=== PATIENT | female | born 1985 | race Caucasian/White ===

== ENCOUNTER → 2017-12-02 | Outpatient (CLI) | payer MEDICAID ==
[~2017-12-02] MED LIST: ACHD5005 PO; IBUP-844 PO; PREN1TAB86 PO
--- NOTE | 2017-12-02 13:56 | Diagnostic Imaging Report ---
INDICATION: Irregular menses. TECHNIQUE: Multiple real-time grayscale images were obtained over the gravid uterus. COMPARISON: None. FINDINGS: There is a single live fetus in a transverse presentation head to maternal right. Placenta is anterior. Amniotic fluid volume is normal. heart rate was recorded at 150 beats per minute. survey demonstrates kidneys, bladder and stomach to be unremarkable. Intracranial structures are unremarkable. There is a three-vessel cord with normal insertion. The spine is unremarkable. Note is made of an echogenic focus in the left ventricle, often of no significance. Followup could be performed. Cervical length is approximately 5 cm. Biometrical measurements are as follows: Biparietal 6.37 cm, age 25 weeks 6 days. Head circumference 24.54 cm, age 26 weeks 5 days. Abdominal circumference 23.20 cm, age 27 weeks 4 days. Femur length 4.80 cm, age 26 weeks 1 days. Sonographic estimate age: 26 weeks 4 days. Sonographic estimated date of delivery: 03-06-18. Estimated Weight: 991 gm (+/- 145 gm). LMP percentile: NA%. heart rate: 150 beats per minute. number: 1 of 1. IMPRESSION: Single live IUP approximately 26 weeks 4 days gestational age with an estimated date of confinement sonographically of 03/06/2018. Echogenic intracardiac focus is seen in the left ventricle, as described. Followup ultrasound can be performed for further evaluation. Dictated by: Dictated on workstation # [id number]
== END ==
LOC: RAD 12:28
PROVIDERS: ATTEND Family Medicine
DX: Z34.82 Encounter for supervision of other normal pregnancy, second trimester (principal); Z3A.26 26 weeks gestation of pregnancy
CPT/HCPCS: 76805

== ENCOUNTER → 2018-01-08 | Outpatient (CLI) | payer MEDICAID ==
--- NOTE | 2018-01-09 13:37 | Diagnostic Imaging Report ---
INDICATION: Echogenic focus in the heart. TECHNIQUE: Multiple real-time grayscale images were obtained over the gravid uterus. COMPARISON: 11/22/2017. FINDINGS: There is a single living intrauterine . The heart rate is 150 beats per minute. The fetus is in a cephalic presentation. The placenta is anterior. There is no evidence of previa. The heart, extremities, and lips are unremarkable. No abnormalities are appreciated. There is a four-chamber heart. The amniotic fluid index is 12.1. The gestational age by last menstrual period is 31 weeks 6 days. IMPRESSION: Limited obstetrical sonogram is unremarkable. Dictated by: Dictated on workstation # [id number]
== END ==
LOC: RAD 16:59
PROVIDERS: ATTEND Family Medicine
DX: Z34.93 Encounter for supervision of normal pregnancy, unspecified, third trimester (principal); Z3A.00 Weeks of gestation of pregnancy not specified
CPT/HCPCS: 76816

== ENCOUNTER 2018-03-03 06:00 | Inpatient (IN) | payer MEDICAID ==
[2018-03-03] VITALS (70 sets, daily range): BP systolic 89–138; BP diastolic 45–89
[~2018-03-03] VITALS: Ht 167.6 cm; Wt 116.2 kg
[2018-03-03] MEDS ORDERED: PREN1TAB86 PO (06:27)
[2018-03-03] MEDS ORDERED: D5 LR IV SOLUTION 1,000 ML IV ONE (06:28)
[2018-03-03] MEDS ORDERED: OXYTOCIN/NORMAL SALINE 500 ML IV ONE (06:28)
[2018-03-03] MEDS ORDERED: OXYTOCIN/NORMAL SALINE 500 ML IV SCH ×2 (06:31→19:04)
[2018-03-03] MEDS ORDERED: NS (IVPB) 100 ML ONE (06:32)
[2018-03-03] MEDS ORDERED: AMPICILLIN 2000 MG INJECTION (IM/IV) ONE (06:32)
[2018-03-03] MEDS ORDERED: MINERAL OIL CONCENTRATE 99.9% 15 ML UDC TOP PRN (06:45)
[2018-03-03] MEDS: D5 LR IV SOLUTION 1,000 ML IV SCH ×2 (06:53→15:11)
[2018-03-03] MEDS ORDERED: AMPICILLIN INJECTION 2,000 MG in NS (IVPB) 50 ML IV SCH (07:00)
--- NOTE | 2018-03-03 07:05 | History & Physical-OB ---
OB - Chief Complaint & HPI Date/Time Date of Admission: Date of Admission: Mar 03, 2018 at 06:19 Time Seen by Provider: 07:15 Chief Complaint/History OB-Reason for Admission/Chief: Induction of Labor Hx : 7 Hx Para: 6 Expected Date of Delivery: Mar 06, 2018 Gestational Age in Weeks: 39 Admission Nurse Assessment Rev: Yes History of Labs GBS Positive Allergies and Home Medications Allergies Coded Allergies: No Known Drug Allergies (Unverified , 03/03/18) Home Medications Vit W-Ca,Fe,FA(<1 mg) 1 Each Tablet, 1 EACH PO DAILY, (Reported) Patient Home Medication List Home Medication List Reviewed: Yes OB - History Hx of Present Care: Yes Ultrasounds: Normal mid trimester US Obstetrical Complications: None Medical Complications: None Delivery History Adverse Rxn to Tranfusion: No Patient Past Medical History no chronic medical problems Social History/Family History Recent Infectious Disease Expo: No Alcohol Use: Denies Use Recreational Drug Use: No OB - Admission Exam Physical Exam HEENT: Moist Membranes Heart: Rhythm Normal Lungs: Clear Cervical Dilatation: 2cm Effacement: 50% OB - Assessment/Plan/Diagnosis Assessment Assessment: induction of labor (at 39w4d) Admission Dx IUP at term 39w4d Admission Status: Inpatient Order (span 2 midnights) Reason for Inpatient Admission: L&D Plan Plan: Induction Induction Method: AROM Other Plan desired epidural pitocin as needed LINNETTE ESCAMILLA MD Mar 03, 2018 07:05
[2018-03-03 07:11] LABS: BASOPHILS % (AUTO) 0 % (0-10); EOSINOPHILS # (AUTO) 0.1 10^3/uL (0.0-0.3); EOSINOPHILS % (AUTO) 2 % (0-10); HEMATOCRIT 34 % (35-52); LYMPHOCYTES # (AUTO) 1.9 X 10^3 (1.0-4.0); LYMPHOCYTES % (AUTO) 24 % (12-44); MEAN CORPUSCULAR HEMOGLOBIN 26 PG (25-34); MEAN CORPUSCULAR HGB CONC 33 G/DL (32-36); MEAN CORPUSCULAR VOLUME 78 FL (80-99); MEAN PLATELET VOLUME 10.8 FL (7.4-10.4); MONOCYTES # (AUTO) 0.8 X 10^3 (0.0-1.0); MONOCYTES % (AUTO) 10 % (0-12); NEUTROPHILS # (AUTO) 5.2 X 10^3 (1.8-7.8); NEUTROPHILS % (AUTO) 65 % (42-75); PLATELET COUNT 209 10^3/uL (130-400); RED BLOOD COUNT 4.29 10^6/uL (4.35-5.85); RED CELL DISTRIBUTION WIDTH 15.7 % (10.0-14.5); WHITE BLOOD COUNT 8.1 10^3/uL (4.3-11.0)
[2018-03-03] MEDS ORDERED: SUFENTA 0.6MCG/ML BUPIVA 0.125 100 ML ONE (07:58)
[2018-03-03] MEDS ORDERED: MEPIVACAINE (CARBOCAINE) 2% 20 ML VIAL ONE (07:58)
[2018-03-03] MEDS: EPIDURAL (SUFENTA 0.6MCG/ML BUPIVA 0.125%) 100 ML BAG EPI PRN ×2 (09:00→17:36)
[2018-03-03] MEDS ORDERED: fentaNYL INJECTION 100 MCG/2 ML AMP ONE (09:04)
[2018-03-03] MEDS ORDERED: LIDOCAINE PF 2% 5 ML (XYLOCAINE) VIAL ONE (09:04)
[2018-03-03] MEDS ORDERED: BUPIVACAINE 0.25% 30 ML (SENSORCAINE) VIAL ONE (09:04)
[2018-03-03] MEDS ORDERED: LACTATED RINGERS 1,000 ML IV SCH (09:35)
[2018-03-03] MEDS ORDERED: NALOXONE 0.4 MG/ML 1 ML (NARCAN) VIAL IV PRN (09:45)
[2018-03-03] MEDS ORDERED: ONDANSETRON 4 MG/2 ML (SDV) Z0FRAN IV PRN (09:45)
[2018-03-03] MEDS ORDERED: diphenhydrAMINE 50 MG/ML INJ (BENADRYL) IV PRN (09:45)
[2018-03-03] MEDS: AMPICILLIN INJECTION 1,000 MG in NS (IVPB) 50 ML IV SCH ×2 (10:57→15:11)
[2018-03-03] MEDS ORDERED: CATHETER FLUSH 10 ML SYR IV SCH (14:00)
[2018-03-03] MEDS ORDERED: ACETAMINOPHEN 500 MG TAB (TYLENOL) ONE (14:34)
[2018-03-03] MEDS ORDERED: ACETAMINOPHEN 500 MG TAB (TYLENOL) PO PRN (14:45)
[2018-03-03 16:18] LABS: BILIRUBIN,URINE NEGATIVE (NEGATIVE); CLARITY,URINE CLEAR; COLOR,URINE YELLOW; GLUCOSE, URINE (UA) NEGATIVE (NEGATIVE); KETONES,URINE NEGATIVE (NEGATIVE); LEUKOCYTE ESTERASE ,URINE 1+ (NEGATIVE); NITRITE,URINE NEGATIVE (NEGATIVE); PH,URINE 6.5 (5-9); PROTEIN,URINE 2+ (NEGATIVE); UROBILINOGEN,URINE NORMAL (NORMAL)
[2018-03-03 16:26] LABS: BACTERIA,URINE NEGATIVE /HPF; CALCIUM OXALATE CRYSTALS,UR LARGE /LPF; WBC,URINE RARE /HPF
--- NOTE | 2018-03-03 16:31 | Progress Note (SOAP) ---
Subjective Subjective/Events-last exam Labor continues. She is without complaints. Epidural in place Review of Systems Date Seen by Provider: Mar 03, 2018 Time Seen by Provider: 16:20 Objective Exam Last Set of Vital Signs Vital Signs Date Time Temp Pulse Resp B/P (MAP) Pulse Ox O2 Delivery O2 Flow Rate FiO2 03/03/18 13:45 95 18 107/59 (75) 95 Room Air 03/03/18 11:00 97.7 Capillary Refill : General: No Acute Distress Other physical findings cervix 7cm, 80% effaced, vtx presentation -2. Results/Procedures Lab Laboratory Tests 03/03/18 06:35: Urine Color YELLOW, Urine Clarity CLEAR, Urine pH 6.5, Urine Specific [place] 1.020, Urine Protein 2+H, Urine Glucose (UA) NEGATIVE, Urine Ketones NEGATIVE, Urine Nitrite NEGATIVE, Urine Bilirubin NEGATIVE, Urine Urobilinogen NORMAL, Urine Leukocyte Esterase 1+H, Urine RBC (Auto) 2+H, Urine RBC 5-10H, Urine WBC RARE, Urine Squamous Epithelial Cells 5-10, Urine Crystals PRESENTH, Urine Calcium Oxalate Crystals LARGEH, Urine Bacteria NEGATIVE, Urine Casts NONE, Urine Mucus NEGATIVE, Urine Culture Indicated NO 03/03/18 06:40: White Blood Count 8.1, Red Blood Count 4.29L, Hemoglobin 11.0L, Hematocrit 34L, Mean Corpuscular Volume 78L, Mean Corpuscular Hemoglobin 26, Mean Corpuscular Hemoglobin Concent 33, Red Cell Distribution Width 15.7H, Platelet Count 209, Mean Platelet Volume 10.8H, Neutrophils (%) (Auto) 65, Lymphocytes (%) (Auto) 24 , Monocytes (%) (Auto) 10, Eosinophils (%) (Auto) 2, Basophils (%) (Auto) 0, Neutrophils # (Auto) 5.2, Lymphocytes # (Auto) 1.9, Monocytes # (Auto) 0.8, Eosinophils # (Auto) 0.1, Basophils # (Auto) 0.0 Assessment/Plan Assessment/Plan Assessment & Plan 1. IUP at term 39w4d in labor -continue labor and pit at 18uU/min currently -epidural working well. Clinical Quality Measures DVT/VTE Risk/Contraindication: Risk Factor Score Per Nursin RFS Level Per Nursing on Admit: 1=Low/No VTE PPX LINNETTE ESCAMILLA MD Mar 03, 2018 16:31
--- NOTE | 2018-03-03 19:04 | OB Labor & Delivery Record ---
L&D History Date of Service Date of Service: Mar 03, 2018 History Expected Date of Delivery: Mar 06, 2018 Gestational Age in Weeks: 39 Hx : 7 Hx Para: 6 Complications Events: Routine care Operative Indications (Cesarea: N/A-Vaginal Delivery Intrapartal Events: None Other Complications GBS positive -- received ampicillin per protochol L&D Stage1 Stage One Onset of Labor - Date: Mar 03, 2018 Onset of Labor - Time: 07:20 Monitors and Tracing Monitor Mode: Internal Heart Rate: 145 Monitor Accelerations: Uniform Station: -1 Lead Electrical Engineer Variability: Average (6-10) Short Term Variability: Present Presentation: Vertex Vital Signs VS - Last 72 Hours, by Label 03/03/18 03/03/18 03/03/18 03/03/18 06:45 07:24 07:40 07:54 Temp 98.4 98.2 Pulse 94 101 96 90 Resp 20 20 20 B/P (MAP) 126/70 (88) 126/66 (86) 106/65 (79) 105/59 (74) O2 Delivery Room Air Room Air Room Air Room Air 03/03/18 03/03/18 03/03/18 03/03/18 08:08 08:25 08:37 08:53 Pulse 94 83 90 Resp 20 20 20 22 B/P (MAP) 105/56 (72) 121/71 (88) 109/56 (73) 110/64 (79) O2 Delivery Room Air Room Air Room Air Room Air 03/03/18 03/03/18 03/03/18 03/03/18 09:10 09:20 09:23 09:24 Pulse 90 103 94 106 Resp 22 22 22 22 B/P (MAP) 116/71 (86) 111/84 (93) 118/64 (82) 121/76 (91) Pulse Ox 99 99 98 O2 Delivery Room Air Room Air Room Air Room Air 03/03/18 03/03/18 03/03/18 03/03/18 09:32 09:35 09:40 09:42 Pulse 94 108 100 110 Resp 22 22 22 22 B/P (MAP) 120/65 (83) 112/58 (76) 93/57 (69) 106/56 (73) Pulse Ox 100 97 97 98 O2 Delivery Room Air Room Air Room Air Room Air 03/03/18 03/03/18 03/03/18 03/03/18 09:45 09:47 09:50 09:55 Pulse 126 105 108 116 Resp 22 22 B/P (MAP) 104/59 (74) 109/59 (76) 110/60 (77) 109/57 (74) Pulse Ox 97 97 97 O2 Delivery Room Air Room Air Room Air Room Air 03/03/18 03/03/18 03/03/18 03/03/18 09:57 10:00 10:03 10:05 Pulse 120 108 111 113 Resp 22 22 B/P (MAP) 101/50 (67) 108/57 (74) 105/54 (71) 96/55 (69) Pulse Ox 98 96 96 97 O2 Delivery Room Air Room Air Room Air Room Air 03/03/18 03/03/18 03/03/18 03/03/18 10:08 10:12 10:20 10:30 Pulse 99 106 86 93 Resp 22 18 18 18 B/P (MAP) 112/53 (72) 97/52 (67) 100/45 (63) Pulse Ox 93 96 97 96 O2 Delivery Room Air Room Air Room Air Room Air 03/03/18 03/03/18 03/03/18 03/03/18 10:45 11:00 11:15 11:30 Temp 97.7 Pulse 96 89 91 82 Resp 18 18 18 18 B/P (MAP) 94/48 (63) 89/50 (63) 100/57 (71) 103/51 (68) Pulse Ox 96 94 97 97 O2 Delivery Room Air Room Air Room Air Room Air 03/03/18 03/03/18 03/03/18 03/03/18 11:45 12:00 12:15 12:30 Pulse 86 88 83 95 Resp 18 18 18 18 B/P (MAP) 100/56 (71) 101/60 (74) 104/58 (73) 106/57 (73) Pulse Ox 98 96 96 98 O2 Delivery Room Air Room Air Room Air Room Air 03/03/18 03/03/18/03/03/18 12:45 13:00 13:30 13:45 Pulse 88 88 96 95 Resp 18 18 18 18 B/P (MAP) 120/55 (76) 115/58 (77) 106/63 (77) 107/59 (75) Pulse Ox 96 96 96 95 O2 Delivery Room Air Room Air Room Air Room Air Signs of Distress by FHT Signs of Distress no Rupture of Membranes Spontaneous Ruture of Membrane: No Amniotic Membrane Rupture Time: 07 Amniotic Membrane Fluid Desc.: Clear Induction/Anesthesia Epidural Cath Placement - Time: 921 L&D Stage2 Stage Two Stage II Date: Mar 03, 2018 Stage II Time: 18:40 Monitors and Tracing Monitor Mode: Internal Heart Rate: 145 Monitor Accelerations: Uniform Monitor Decelerations: Variable Lead Electrical Engineer Variability: Average (6-10) Short Term Variability: Present Position: Left Occiput Anterior Presentation: Vertex Signs of Distress by FHT Signs of Distress no Cord Descript/Complications Cord Vessel Description: 3 Vessels Delivery Type Delivery Method: Spontaneous Vaginal Episiotomy/Perineal Laceration Laceraction(s)/Extensions: Yes Episiotomy Description: Midline Sutures Used: Vicryl Condition of Infant Delivery 1 minute Comment: 7 5 minute Comment: 8 Condition of Infant Condition of Infant: Living Exam: No Observed Abnormalities Resuscitation Resuscitation: N/A - Spontaneous Resp L&D Stage3 Stage Three Stage III Date: Mar 03, 2018 Stage III Time: 18:43 Pictocin Pitocin Administration mu/min: 20 Pitocin ml/hr: 20 Pitocin Administration Comment: PITOCIN STARTED PER PROTOCOL. Placenta Delivery Placenta Delivery: Spontaneous Delivery Summary Summary Estimated blood loss (mL): 250 Condition of Delivery Examined: Cervix Examined Post Hemorrhage: No Intervention Required none LINNETTE ESCAMILLA MD Mar 03, 2018 19:04
[2018-03-03] MEDS ORDERED: BENZOCAINE/MENTHOL (DERMOPLAST) 56 ML CAN TP PRN (19:15)
[2018-03-03] MEDS ORDERED: TETANUS,DIPTH,PERTUSS P/F (BOOSTRIX) 0.5 ML VIAL IM ONE (19:15)
[2018-03-03] MEDS ORDERED: MEASLES,MUMPS,RUBELLA 1 EA INJ SQ ONE (19:15)
[2018-03-03] MEDS ORDERED: WITCH HAZEL(TUCKS) 40 EA JAR TOP PRN (19:15)
[2018-03-03] MEDS: IBUPROFEN 600 MG (MOTRIN) TAB PO SCH (20:13)
[2018-03-04 01:00] VITALS: BP 111/69
[2018-03-04] MEDS: IBUPROFEN 600 MG (MOTRIN) TAB PO SCH ×4 (02:08→20:09)
[2018-03-04 05:00] VITALS: BP 98/59
[2018-03-04] MEDS: HYDROcodone/APAP 5 MG/325 MG (LORTAB) TAB PO PRN ×4 (05:16→16:55)
[2018-03-04 05:43] LABS: BASOPHILS % (AUTO) 0 % (0-10); EOSINOPHILS # (AUTO) 0.1 10^3/uL (0.0-0.3); EOSINOPHILS % (AUTO) 1 % (0-10); HEMATOCRIT 31 % (35-52); LYMPHOCYTES # (AUTO) 1.9 X 10^3 (1.0-4.0); LYMPHOCYTES % (AUTO) 20 % (12-44); MEAN CORPUSCULAR HEMOGLOBIN 26 PG (25-34); MEAN CORPUSCULAR HGB CONC 33 G/DL (32-36); MEAN CORPUSCULAR VOLUME 79 FL (80-99); MONOCYTES # (AUTO) 0.9 X 10^3 (0.0-1.0); MONOCYTES % (AUTO) 9 % (0-12); NEUTROPHILS # (AUTO) 6.6 X 10^3 (1.8-7.8); NEUTROPHILS % (AUTO) 70 % (42-75); PLATELET COUNT 219 10^3/uL (130-400); RED BLOOD COUNT 3.92 10^6/uL (4.35-5.85); RED CELL DISTRIBUTION WIDTH 15.8 % (10.0-14.5); WHITE BLOOD COUNT 9.4 10^3/uL (4.3-11.0)
[2018-03-04] MEDS ORDERED: PRENATAL VITAMIN 1 EA TAB PO SCH (07:00)
--- NOTE | 2018-03-04 07:38 | Progress Note (SOAP) ---
Subjective Subjective/Events-last exam Tailbone discomfort. Review of Systems Date Seen by Provider: Mar 04, 2018 Time Seen by Provider: 07:30 Objective Exam Last Set of Vital Signs Vital Signs Date Time Temp Pulse Resp B/P (MAP) Pulse Ox O2 Delivery O2 Flow Rate FiO2 03/04/18 05:00 97.8 85 18 98/59 (72) 97 Room Air Capillary Refill : I&O Intake and Output 03/04/18 00:00 Intake Total 1750 ml Balance 1750 ml Intake IV Total 1750 ml Daily Weight Change No General: No Acute Distress Lungs: Clear to Auscultation Abdomen: Soft (with uterus firm) Results/Procedures Lab Laboratory Tests 03/04/18 05:12: White Blood Count 9.4, Red Blood Count 3.92L, Hemoglobin 10.0L, Hematocrit 31L, Mean Corpuscular Volume 79L, Mean Corpuscular Hemoglobin 26, Mean Corpuscular Hemoglobin Concent 33, Red Cell Distribution Width 15.8H, Platelet Count 219, Mean Platelet Volume 11.0H, Neutrophils (%) (Auto) 70, Lymphocytes (%) (Auto) 20 , Monocytes (%) (Auto) 9, Eosinophils (%) (Auto) 1, Basophils (%) (Auto) 0, Neutrophils # (Auto) 6.6, Lymphocytes # (Auto) 1.9, Monocytes # (Auto) 0.9, Eosinophils # (Auto) 0.1, Basophils # (Auto) 0.0 Assessment/Plan Assessment/Plan Assessment & Plan 1. IUP at term 39w4d -S/P -continue with PP care order -Possibly home this pm after 24 hrs Clinical Quality Measures DVT/VTE Risk/Contraindication: Risk Factor Score Per Nursin RFS Level Per Nursing on Admit: 1=Low/No VTE PPX LINNETTE ESCAMILLA MD Mar 04, 2018 07:38
[2018-03-04] MEDS ORDERED: IBUP-844 PO (07:40)
[2018-03-04] MEDS ORDERED: ACHD5005 PO (07:40)
--- NOTE | 2018-03-04 07:41 | Discharge Inst-Women's Service ---
Discharge Inst-Women's Serv Depart Medication/Instructions New, Converted or Re-Newed RX: RX on Chart Consults/Follow Up Additional Follow Up: Yes (with Dr Escamilla in 6 weeks.) Activity Activity: Activity as Tolerated Driving Instructions: No Driving for 1 Week Nothing Inside Vagina: No [place] (for 6 weeks.) Diet Discharge Diet: Regular Diet Return to The Hospital For: as below Symptoms to Report to : Bleeding Excessive, Pain Increased, Fever Over 101 Degrees F, Vaginal Discharge Foul For Any Problems or Questions: Contact Your Physician, Go to Emergency Room LINNETTE ESCAMILLA MD Mar 04, 2018 07:41
[2018-03-04] MEDS ORDERED: TETANUS,DIPTH,PERTUSS P/F (BOOSTRIX) 0.5 ML VIAL IM ONE (08:35)
[2018-03-04] MEDS ORDERED: MEASLES,MUMPS,RUBELLA 1 EA INJ ONE (08:37)
[2018-03-04 08:52] VITALS: BP 100/66
[2018-03-04 12:43] VITALS: BP 108/69
[2018-03-04] MEDS: CATHETER FLUSH 10 ML SYR IV SCH ×2 (15:57→15:59)
[2018-03-04 16:52] VITALS: BP 116/64
[2018-03-04 20:10] VITALS: BP 116/70
--- NOTE | 2018-03-07 15:16 | Physician Query-Final Dx ---
DALE DE LA VEGA 03/07/18 1516: Final Diagnosis Give Final Diagnosis Please give Final Diagnosis LINNETTE ESCAMILLA MD 03/17/18 0756: Final Diagnosis Give Final Diagnosis 1 Intrauterine at term 39 weeks gestation [facility] Mar 07, 2018 15:16 LINNETTE ESCAMILLA MD Mar 17, 2018 07:56
== END 2018-03-04 20:50 | disposition home or self-care (01) | DRG 775 ==
LOC: LDRP 06:19
PROVIDERS: ADMIT Family Medicine; ATTEND Family Medicine
PROC: 10E0XZZ Delivery of Products of Conception, External Approach (ICD-10-PCS; principal; 2018-03-03)
PROC: 0W8NXZZ Division of Female Perineum, External Approach (ICD-10-PCS; 2018-03-03)
PROC: 10907ZC Drainage of Amniotic Fluid, Therapeutic from Products of Conception, Via Natural or Artificial Opening (ICD-10-PCS; 2018-03-03)
DX: O99.824 Streptococcus B carrier state complicating childbirth (principal); Z37.0 Single live birth; Z3A.39 39 weeks gestation of pregnancy; Z23 Encounter for immunization
CPT/HCPCS: 36415; 81000; 85025; 86850; 86900; 86901; 90707; 90715

== ENCOUNTER 2019-11-01 12:49 | Emergency (ER) | payer SELFPAY ==
[~2019-11-01] VITALS: Ht 167.7 cm; Wt 102.6 kg
--- NOTE | 2019-11-01 13:09 | ED Abdominal Pain ---
General Stated Complaint: ABD PAIN History of Present Illness Date Seen by Provider: Nov 01, 2019 Time Seen by Provider: 13:07 Initial Comments This patient is a 34-year-old female presents to the emergency room believing she is constipated. Patient has long history of the same. Patient states she had a small BM yesterday which was very hard and small. Patient's has abdominal cramping since last night. This is a common issue for this patient. We'll do a medical evaluation treatment is needed Timing/Duration: 2-3 Days Severity/Quality: Moderate Location: Generalized Abdomen Radiation: No Radiation Activities at Onset: None Modifying Factors: Improves With Defecating Associated Symptoms: No Denies Symptoms, No Back Pain, No Chest Pain, No Diaphoresis, No Fever/Chills, No Fatigue, No Headache, No Heartburn, No Nausea/Vomiting, No Rash, No Shortness of Air, No Swelling/Mass in Abdomen, No Syncope, No Weakness, No Other Allergies and Home Medications Allergies Coded Allergies: No Known Drug Allergies (Unverified , 03/03/18) Home Medications Hydrocodone Bit/Acetaminophen 1 Tab Tab, 1 TAB PO Q4H PRN for PAIN-MODERATE Prescribed by: LINNETTE ESCAMILLA on 03/04/18 0740 Ibuprofen 600 Mg Tablet, 600 MG PO Q6H Prescribed by: LINNETTE ESCAMILLA on 03/04/18 0740 Vit W-Ca,Fe,FA(<1 mg) 1 Each Tablet, 1 EACH PO DAILY, (Reported) Patient Home Medication List Home Medication List Reviewed: Yes Review of Systems Review of Systems Constitutional: No no symptoms reported, No see HPI, No chills, No diaphoresis, No dizziness, No fever, No malaise, No weakness, No weight gain, No weight loss, No other EENTM: No No Symptoms Reported, No See HPI, No Blurred Vision, No Double Vision, No Eye Pain, No Eye Tearing, No Ear Drainage, No Ear Pain, No Mouth Pain, No Mouth Swelling, No Nose Congestion, No Nose Pain, No Throat Pain, No Throat Swelling, No Other Respiratory: Denies No Symptoms Reported, Denies See HPI, Denies Cough, Denies Orthopnea, Denies Shortness of Air, Denies SOA With Exertion, Denies SOA at Rest, Denies Stridor, Denies Wheezing, Denies Other Cardiovascular: No Symptoms Reported, See HPI; Denies Chest Pain, Denies Edema, Denies Irregular Heart Rate, Denies Lightheadedness, Denies Palpitations, Denies Syncope, Denies Other Gastrointestinal: Denies No Symptoms Reported, Denies See HPI, Denies Abdomen Distended, Denies Abdominal Pain, Denies Blood Streaked Stools; Constipated; Denies Diarrhea, Denies Difficulty Swallowing, Denies Nausea, Denies Poor Appetite, Denies Poor Fluid Intake, Denies Rectal Bleeding, Denies Vomiting, Denies Other Genitourinary: No Symptoms Reported, See HPI; Denies Burning, Denies Discharge, Denies Drainage, Denies Frequency, Denies Flank Pain, Denies Hematuria, Denies Incontinence, Denies Pain, Denies Urgency, Denies Other Past Xduvheo-Mhieae-Dxomrk Hx Patient Social History Recent Hopitalizations: No Seasonal Allergies Seasonal Allergies: No Past Medical History Surgeries: Yes (Hiatal Hernia repair) Respiratory: No Cardiac: No Neurological: No Genitourinary: No Gastrointestinal: Yes (surgery [id number]) Hiatal Hernia Musculoskeletal: No Endocrine: No HEENT: No Cancer: No Psychosocial: No Integumentary: No Blood Disorders: No Adverse Reaction/Blood Tranf: No Family Medical History Patient reports no known family medical history. Physical Exam Vital Signs Vital Signs - First Documented 11/01/19 12:55 Temp 37.2 Pulse 99 Resp 18 B/P (MAP) 120/52 (74) Pulse Ox 99 O2 Delivery Room Air Capillary Refill : Height/Weight/BMI Height: 5'6.00" Weight: 256lbs. 2.0oz. [id number]; 41.3 BMI Method: General Appearance: WD/WN, no apparent distress HEENT: PERRL/EOMI, normal ENT inspection, TMs normal, pharynx normal Neck: non-tender, full range of motion, supple, normal inspection Respiratory: chest non-tender, lungs clear, normal breath sounds, no respiratory distress, no accessory muscle use Cardiovascular: normal peripheral pulses, regular rate, rhythm, no edema, no gallop, no JVD, no murmur Gastrointestinal: normal bowel sounds, non tender, soft, no organomegaly, no pulsatile mass Progress/Results/Core Measures Results/Orders Lab Results Laboratory Tests Test 11/01/19 13:07 3/15/20 13:35 Range/Units Urine Color YELLOW Urine Clarity CLEAR Urine pH >=9.0 5-9 Urine Specific [place] 1.015 L 1.016-1.022 Urine Protein NEGATIVE NEGATIVE Urine Glucose (UA) NEGATIVE NEGATIVE Urine Ketones NEGATIVE NEGATIVE Urine Nitrite NEGATIVE NEGATIVE Urine Bilirubin NEGATIVE NEGATIVE Urine Urobilinogen 0.2 < = 1.0 MG/DL Urine Leukocyte Esterase TRACE H NEGATIVE Urine RBC (Auto) NEGATIVE NEGATIVE Urine RBC 0-2 /HPF Urine WBC RARE /HPF Urine Squamous Epithelial Cells 5-10 /HPF Urine Crystals NONE /LPF Urine Bacteria NEGATIVE /HPF Urine Casts NONE /LPF Urine Mucus NONE /LPF Urine Culture Indicated NO White Blood Count 9.9 4.3-11.0 10^3/uL Red Blood Count 4.93 4.35-5.85 10^6/uL Hemoglobin 12.8 11.5-16.0 G/DL Hematocrit 40 35-52 % Mean Corpuscular Volume 80 80-99 FL Mean Corpuscular Hemoglobin 26 25-34 PG Mean Corpuscular Hemoglobin Concent 32 32-36 G/DL Red Cell Distribution Width 13.8 10.0-14.5 % Platelet Count 214 130-400 10^3/uL Mean Platelet Volume 9.8 7.4-10.4 FL Neutrophils (%) (Auto) 79 H 42-75 % Lymphocytes (%) (Auto) 13 12-44 % Monocytes (%) (Auto) 7 0-12 % Eosinophils (%) (Auto) 0 0-10 % Basophils (%) (Auto) 1 0-10 % Neutrophils # (Auto) 7.8 1.8-7.8 X 10^3 Lymphocytes # (Auto) 1.3 1.0-4.0 X 10^3 Monocytes # (Auto) 0.7 0.0-1.0 X 10^3 Eosinophils # (Auto) 0.0 0.0-0.3 10^3/uL Basophils # (Auto) 0.0 0.0-0.1 10^3/uL Sodium Level 139 135-145 MMOL/L Potassium Level 3.7 3.6-5.0 MMOL/L Chloride Level 101 98-107 MMOL/L Carbon Dioxide Level 27 21-32 MMOL/L Anion Gap 11 5-14 MMOL/L Blood Urea Nitrogen 10 7-18 MG/DL Creatinine 0.58 L 0.60-1.30 MG/DL Estimat Glomerular Filtration Rate > 60 BUN/Creatinine Ratio 17 Glucose Level 108 H 70-105 MG/DL Calcium Level 9.3 8.5-10.1 MG/DL Corrected Calcium 9.0 8.5-10.1 MG/DL Total Bilirubin 0.3 0.1-1.0 MG/DL Aspartate Amino Transf (AST/SGOT) 13 5-34 U/L Alanine Aminotransferase (ALT/SGPT) 9 0-55 U/L Alkaline Phosphatase 46 40-136 U/L Total Protein 7.3 6.4-8.2 GM/DL Albumin 4.4 3.2-4.5 GM/DL Amylase Level 69 25-125 U/L Lipase 41 8-78 U/L Serum Test, Qualitative NEGATIVE NEGATIVE My Orders Orders - OPAL MICHELE MD Urinalysis (11/01/19 13:06) Abdomen Flat & Upright/Decub (11/01/19 13:06) Comprehensive Metabolic Panel (11/01/19 13:29) Lipase (11/01/19 13:29) Amylase (11/01/19 13:29) Hcg,Qualitative Serum (11/01/19 13:29) Ed Iv/Invasive Line Start (11/01/19 13:29) Cbc With Automated Diff (11/01/19 13:29) Ct Abdomen/Pelvis W (11/01/19 13:29) Ns Iv 1000 Ml (Sodium Chloride 0.9%) (11/01/19 13:29) Iohexol Injection (Omnipaque 350 Mg/Ml 1 (11/01/19 14:15) Ns (Ivpb) (Sodium Chloride 0.9% Ivpb Bag (11/01/19 14:15) Medications Given in ED Current Medications Medications Dose Ordered Sig/Valerie Route Start Time Stop Time Status Last Admin Dose Admin Iohexol 100 ml ONCE ONCE IV 11/01/19 14:15 11/01/19 14:16 DC 11/01/19 14:13 100 ML Sodium Chloride 100 ml ONCE ONCE IV 11/01/19 14:15 11/01/19 14:16 DC 11/01/19 14:13 80 ML Vital Signs/I&O 11/01/19 12:55 Temp 37.2 Pulse 99 Resp 18 B/P (MAP) 120/52 (74) Pulse Ox 99 O2 Delivery Room Air Diagnostic Imaging Diagonstic Imaging: CT Plain Films/CT/US/NM/MRI: abdomen Comments Patient is a 3.9 cm ovarian cyst otherwise normal exam. Reviewed: Reviewed/Discussed Departure Impression Primary Impression: Abdominal pain Additional Impression: Ovarian cyst Disposition: HOME, SELF-CARE Condition: Stable Departure-Patient Inst. Referrals: SONAL ROMERO MD (PCP/Family) Primary Care Physician Patient Instructions: Ovarian Cysts Add. Discharge Instructions: Encourage by mouth fluids. Lay left side in position of comfort. Use heating pads when necessary as needed for comfort. Follow up with ORTHOPEDIC RADIOLOGIC TECHNOLOGIST for further evaluation and treatment. Take medication as instructed. Scripts Dicyclomine HCl (Dicyclomine HCl) 20 Mg Tablet 20 MG PO BID WITH MEALS for 10 Days, #20 TAB 0 Refills Prov: OPAL MICHELE MD 11/01/19 Diclofenac Sodium (Diclofenac Sodium) 75 Mg Tablet.dr 75 MG PO BID for 10 Days, #20 TAB 0 Refills Prov: OPAL MICHELE MD 11/01/19 OPAL MICHELE MD Nov 01, 2019 13:09
[2019-11-01 13:21] LABS: BACTERIA,URINE NEGATIVE /HPF; BILIRUBIN,URINE NEGATIVE (NEGATIVE); CLARITY,URINE CLEAR; COLOR,URINE YELLOW; GLUCOSE, URINE (UA) NEGATIVE (NEGATIVE); KETONES,URINE NEGATIVE (NEGATIVE); LEUKOCYTE ESTERASE ,URINE TRACE (NEGATIVE); NITRITE,URINE NEGATIVE (NEGATIVE); PH,URINE >=9.0 (5-9); PROTEIN,URINE NEGATIVE (NEGATIVE); RBC,URINE 0-2 /HPF; WBC,URINE RARE /HPF
[2019-11-01] MEDS ORDERED: NS IV 1000 ML 1,000 ML IV STA (13:29)
[2019-11-01 13:43] LABS: HEMOGLOBIN 12.8 G/DL (11.5-16.0); MEAN CORPUSCULAR HEMOGLOBIN 26 PG (25-34); WHITE BLOOD COUNT 9.9 10^3/uL (4.3-11.0)
[2019-11-01 13:44] LABS: EOSINOPHILS % (AUTO) 0 % (0-10); HEMATOCRIT 40 % (35-52); LYMPHOCYTES % (AUTO) 13 % (12-44); MEAN CORPUSCULAR HGB CONC 32 G/DL (32-36); MEAN CORPUSCULAR VOLUME 80 FL (80-99); MEAN PLATELET VOLUME 9.8 FL (7.4-10.4); MONOCYTES % (AUTO) 7 % (0-12); NEUTROPHILS % (AUTO) 79 % (42-75); PLATELET COUNT 214 10^3/uL (130-400); RED CELL DISTRIBUTION WIDTH 13.8 % (10.0-14.5)
[2019-11-01 13:45] LABS: BASOPHILS % (AUTO) 1 % (0-10); LYMPHOCYTES # (AUTO) 1.3 X 10^3 (1.0-4.0); MONOCYTES # (AUTO) 0.7 X 10^3 (0.0-1.0); NEUTROPHILS # (AUTO) 7.8 X 10^3 (1.8-7.8)
--- NOTE | 2019-11-01 13:52 | Diagnostic Imaging Report ---
INDICATION: No history. TIME OF EXAM: 1:17 PM The bowel gas pattern is nonobstructed. No pathologic calcifications are seen. No definite free air is identified. IMPRESSION: No acute abnormality is detected. Dictated by: Dictated on workstation # [id number]
[2019-11-01 13:59] LABS: POTASSIUM 3.7 MMOL/L (3.6-5.0); SODIUM 139 MMOL/L (135-145)
[2019-11-01 14:00] LABS: ALANINE AMINOTRANSFERASE 9 U/L (0-55); ALBUMIN 4.4 GM/DL (3.2-4.5); ALKALINE PHOSPHATASE 46 U/L (40-136); AMYLASE 69 U/L (25-125); BILIRUBIN,TOTAL 0.3 MG/DL (0.1-1.0); BUN/CREATININE RATIO 17; CALCIUM 9.3 MG/DL (8.5-10.1); CARBON DIOXIDE 27 MMOL/L (21-32); CHLORIDE 101 MMOL/L (98-107); CREATININE SERUM 0.58 MG/DL (0.60-1.30); GFR ESTIMATED > 60; GLUCOSE 108 MG/DL (70-105); LIPASE 41 U/L (8-78); TOTAL PROTEIN 7.3 GM/DL (6.4-8.2)
[2019-11-01] MEDS ORDERED: NS 100 ML (IVPB) BAG IV ONE (14:15)
[2019-11-01] MEDS ORDERED: IOHEXOL 350 MG/ML 100 ML (OMNIPAQUE 350) VIAL IV ONE (14:15)
--- NOTE | 2019-11-01 14:25 | Diagnostic Imaging Report ---
PROCEDURE: CT abdomen and pelvis with contrast. TECHNIQUE: Multiple contiguous axial images were obtained through the abdomen and pelvis after administration of intravenous contrast. Auto Exposure Controls were utilized during the CT exam to meet ALARA standards for radiation dose reduction. INDICATION: Lower abdominal pain and nausea. COMPARISON: No prior studies are available for comparison. FINDINGS: The lung bases are clear. No discrete liver mass is detected. Gallbladder is unremarkable. No biliary ductal dilatation is seen. Pancreas and spleen are unremarkable. No adrenal mass is detected. Kidneys are unremarkable. No hydronephrosis is identified. Aorta is nonaneurysmal. The small and large bowel loops are normal in caliber. Appendix is visualized in the right lower quadrant appears unremarkable. No free fluid is seen. There is a cyst in the left adnexa measuring approximately 3.9 cm in size and likely ovarian. Bladder and uterus are unremarkable. IMPRESSION: 1. No CT evidence of acute appendicitis. 2. 3.9 cm left ovarian cyst. No other significant abnormality is seen. Dictated by: Dictated on workstation # [id number]
[2019-11-01] MEDS ORDERED: DICY20TA10 PO (14:35)
[2019-11-01] MEDS ORDERED: DICL75TA2 PO (14:35)
[2019-11-01 14:40] VITALS: BP 136/79
--- OUTSIDE RECORDS SUMMARY | 2019-11-02 01:13 | XMS REPORT ---
Author Author Roderick MOULTON [facility] Address [address] [place] [address] Care Team Providers Care Freezer Worker Name Role Phone PIETRO MOULTON Unavailable PROBLEMS Unknown Problems ALLERGIES No Information ENCOUNTERS Encounter Location Date Diagnosis [place] [id number] [address] [place] [phone] Feb, BMI 40.0-44.9, adult Z68.41 and Third trimester Z33.1 [place] [address] N [place] [id number] [address] [place] [address] Feb, Third trimester Z3 4.93 and 37 weeks gestation of Z3A.37 [place] [address] N [place] [id number] [address] [place] [phone] Jan, Encounter for supervision of normal in third trimester Z34.93 [place] [address] [address] [place] [id number] [address] [place] [address] Jan, BMI 40.0-44.9, adult Z68.41 and Normal in multigravida Z34.80 [place] [address] [address] [place] [id number] [address] [place] [phone] Jan, Encounter for supervision of normal in third trimester Z34.93 [place] [address] N [place] [id number] [address] [place] [phone] December, Encounter for immunization Z 23 ; BMI 40.0-44.9, adult Z68.41 and care of multigravida, antepartum Z34.80 [place] [address] [address] [place] [id number] [address] [place] [phone] December, Encounter for supervision of normal in third trimester Z34.93 and Encounter for immunization Z23 [facility] [address] [id number] [address] [place] [phone] December, Encounter for supervision of normal in third trimester Z34.93 [facility] [address] [id number] [address] [place] [phone] Nov, Normal in [facility] [place] Z34.80 [facility] [address] [id number] [address] [place] [address] [phone] Nov, Dental caries K02.9 [facility] [address] [id number] [address] [place] [phone] Nov, Normal in [facility] [place] Z34.80 [facility] [address] [id number] [address] [place] [phone] Nov, [facility] [address] [id number] [address] [place] [phone] Nov, Dental examination Z01.20 [facility] [address] [id number] [address] [place] [phone] Nov, [facility] [address] [id number] [address] [place] [phone] Nov, Encounter for test , result unknown Z32.00 [facility] [address] [id number] [address] [place] [address] [phone] Nov, Dental examination Z01.20 IMMUNIZATIONS No Known Immunizations SOCIAL HISTORY Never Assessed REASON FOR VISIT OB 1wk f/u - YVAN Cardona PLAN OF CARE Activity Details Follow Up 1 Week Reason: VITAL SIGNS Height 65 in 2018-02-18 Weight 255 lbs 2018-02-18 Temperature 98.6 degrees Fahrenheit 2018-02-18 Heart Rate 88 bpm 2018-02-18 Respiratory Rate 18 2018-02-18 BMI 42.43 kg/m2 2018-02-18 Blood pressure systolic 110 mmHg 2018-02-18 Blood pressure diastolic 70 mmHg 2018-02-18 MEDICATIONS Medication Instructions Dosage Frequency Start Date End Date Duration S tatus Tramadol HCl 50 MG Orally every 6 hrs 1 tablet as needed 6h Not-Taking Ibuprofen Not-Taking Vitamin 27-0.8 MG Orally Once a day 1 tablet 24h Active RESULTS Name Result Date Reference Range UA OB DIP (IN HOUSE) 2018-02-18 Glucose neg Protein 1+ PROCEDURES Procedure Date Ordered Result Body Site URINE-NO MICRO February 18, 2018 INSTRUCTIONS MEDICATIONS ADMINISTERED No Known Medications MEDICAL (GENERAL) HISTORY Type Description Date Medical History Recovering alcoholic- sober since 2015 Medical History Depression Medical History Surgical History Hiatal Hernia Repair 2012 Hospitalization History Childbirth Hospitalization History Surgery
--- OUTSIDE RECORDS SUMMARY | 2019-11-02 01:13 | XMS REPORT ---
Author Author Roderick ESCAMILLA Organization [facility] Address [address] [place] [address] Care Team Providers Care Psychologist Name Role Phone LINNETTE ESCAMILLA Unavailable PROBLEMS Unknown Problems ALLERGIES No Information ENCOUNTERS Encounter Location Date Diagnosis [place] 576301 N [place] [id number] [address] [place] [phone] Feb, BMI 40.0-44.9, adult Z68.41 and Third trimester Z33.1 [place] [address] N [place] [id number] [address] [place] [phone] Feb, Third trimester Z3 4.93 [place] [address] N [place] [id number] [address] [place] [phone] Jan, Encounter for supervision of normal in third trimester Z34.93 [place] [address] N [place] [id number] [address] [place] [phone] Jan, BMI 40.0-44.9, adult Z68.41 and Normal in multigravida Z34.80 [place] [address] N [place] [id number] [address] [place] [phone] Jan, Encounter for supervision of normal in third trimester Z34.93 [place] [address] N [place] [id number] [address] [place] [phone] December, Encounter for immunization Z 23 ; BMI 40.0-44.9, adult Z68.41 and care of multigravida, antepartum Z34.80 [place] [address] N [place] [id number] [address] [place] [phone] December, Encounter for supervision of normal in third trimester Z34.93 and Encounter for immunization Z23 [place] [address] [id number] [address] [place] [phone] December, Encounter for supervision of normal in third trimester Z34.93 [facility] [address] [id number] [address] [place] [phone] Nov, [facility] Z34.80 [facility] [address] [id number] [address] [place] [address] [phone] Nov, Dental caries K02.9 [facility] [address] [id number] [address] [place] [phone] Nov, Normal in libradodejah horvath Z34.80 [facility] [address] [id number] [address] [place] [phone] Nov, [facility] [address] [id number] [address] [place] [phone] Nov, Dental examination Z01.20 [facility] [address] [id number] [address] [place] [phone] Nov, [facility] [address] [id number] [address] [place] [phone] Nov, Encounter for test , result unknown Z32.00 [facility] [address] [id number] [address] [place] [address] [phone] Nov, Dental examination Z01.20 IMMUNIZATIONS No Known Immunizations SOCIAL HISTORY Never Assessed REASON FOR VISIT OB 1wk f/u -- nai bradshaw PLAN OF CARE Activity Details Follow Up 1 Week Reason: VITAL SIGNS Height 65 in 2018-02-12 Weight 253.6 lbs 2018-02-12 Temperature 98.0 degrees Fahrenheit 2018-02-12 BMI 42.201 kg/m2 2018-02-12 Blood pressure systolic 136 mmHg 2018-02-12 Blood pressure diastolic 80 mmHg 2018-02-12 MEDICATIONS Medication Instructions Dosage Frequency Start Date End Date Duration S tatus Vitamin 27-0.8 MG Orally Once a day 1 tablet 24h Active Tramadol HCl 50 MG Orally every 6 hrs 1 tablet as needed 6h Not-Taking Ibuprofen Not-Taking RESULTS Name Result Date Reference Range UA OB DIP (IN HOUSE) 2018-02-12 Glucose neg Protein 1+ PROCEDURES Procedure Date Ordered Result Body Site URINE-NO MICRO February 12, 2018 INSTRUCTIONS MEDICATIONS ADMINISTERED No Known Medications MEDICAL (GENERAL) HISTORY Type Description Date Medical History Recovering alcoholic- sober since 2015 Medical History Depression Medical History Surgical History Hiatal Hernia Repair 2012 Hospitalization History Childbirth Hospitalization History Surgery
--- OUTSIDE RECORDS SUMMARY | 2019-11-02 01:13 | XMS REPORT ---
Author Author Roderick ESCAMILLA Organization [facility] Address [address] [place] [address] Care Team Providers Care Diesel Power Shovel Operator Name Role Phone LINNETTE ESCAMILLA Unavailable PROBLEMS Unknown Problems ALLERGIES No Information ENCOUNTERS Encounter Location Date Diagnosis [place] [address] N [place] [id number] [address] [place] [phone] Jun, [place] [address] [phone] Feb, BMI 40.0-44.9, adult Z68.41 and Third trimester Z33.1 [place] [address] [address] Feb, Third trimester Z3 4.93 and 37 weeks gestation of Z3A.37 [place] [address] [address] Jan, Encounter for supervision of normal in third trimester Z34.93 [place] [address] N [place] [id number] [address] [place] [address] Jan, BMI 40.0-44.9, adult Z68.41 and Normal in multigravida Z34.80 [place] [address] N [place] [id number] [address] [place] [phone] Jan, Encounter for supervision of normal in third trimester Z34.93 [place] [address] N [place] [id number] [address] [place] [phone] December, Encounter for immunization Z 23 ; BMI 40.0-44.9, adult Z68.41 and care of multigravida, antepartum Z34.80 [place] [address] [place] [address] December, Encounter for supervision of normal in third trimester Z34.93 and Encounter for immunization Z23 [facility] [address] [id number] [address] [place] [phone] December, Encounter for supervision of normal in third trimester Z34.93 [facility] [address] [id number] [address] [place] [phone] Nov, Normal in multigra yuliet Z34.80 [facility] [address] [id number] [address] [place] [phone] Nov, Dental caries K02.9 [facility] [address] [id number] [address] [place] [phone] Nov, Normal in multia yuliet Z34.80 [facility] [address] [id number] [address] [place] [phone] Nov, [facility] [address] [id number] [address] [place] [phone] Nov, Dental examination Z01.20 [facility] [address] [id number] [address] [place] [phone] Nov, [facility] [address] [id number] [address] [place] [phone] Nov, Encounter for test , result unknown Z32.00 [facility] [address] [id number] [address] [place] [address] [phone] Nov, Dental examination Z01.20 IMMUNIZATIONS No Known Immunizations SOCIAL HISTORY Never Assessed REASON FOR VISIT Requests return call PLAN OF CARE VITAL SIGNS MEDICATIONS Unknown Medications RESULTS No Results PROCEDURES No Known procedures INSTRUCTIONS MEDICATIONS ADMINISTERED No Known Medications MEDICAL (GENERAL) HISTORY Type Description Date Medical History Recovering alcoholic- sober since 2015 Medical History Depression Medical History Surgical History Hiatal Hernia Repair 2012 Hospitalization History Childbirth Hospitalization History Surgery
--- OUTSIDE RECORDS SUMMARY | 2019-11-02 01:13 | XMS REPORT ---
Author Author Roderick ESCAMILLA Organization [facility] Address [address] [place] [address] Care Team Providers Care Compounder Helper Name Role Phone LINNETTE ESCAMILLA Unavailable PROBLEMS Unknown Problems ALLERGIES No Known Allergies ENCOUNTERS Encounter Location Date Diagnosis [place] 580451 N [place] [id number] [address] [place] [phone] Feb, BMI 40.0-44.9, adult Z68.41 and Third trimester Z33.1 [place] [address] N [place] [id number] [address] [place] [address] Feb, Third trimester Z3 4.93 [place] [address] N [place] [id number] [address] [place] [phone] Jan, Encounter for supervision of normal in third trimester Z34.93 [place] [address] N [place] [id number] [address] [place] [address] Jan, BMI 40.0-44.9, adult Z68.41 and Normal in multigravida Z34.80 [place] [address] N [place] [id number] [address] [place] [phone] Jan, Encounter for supervision of normal in third trimester Z34.93 [place] 580451 [address] [place] [address] December, Encounter for immunization Z 23 ; BMI 40.0-44.9, adult Z68.41 and care of multigravida, antepartum Z34.80 [place] [address] N [place] [id number] [address] [place] [phone] December, Encounter for supervision of normal in third trimester Z34.93 and Encounter for immunization Z23 [place] [address] [id number] [address] [place] [phone] December, Encounter for supervision of normal in third trimester Z34.93 [facility] [address] [id number] [address] [place] [phone] Nov, Normal in multigra [place]uliet Z34.80 [facility] [address] [id number] [address] [place] [phone] Nov, 2017 Dental caries K02.9 [facility] [address] [id number] [address] [place] [phone] Nov, Normal in multigra yuliet Z34.80 [facility] [address] [id number] [address] [place] [phone] Nov, [facility] [address] [id number] [address] [place] [phone] Nov, Dental examination Z01.20 [facility] [address] [id number] [address] [place] [phone] 04 Nov, 2017 Encounter for test , result unknown Z32.00 [facility] [address] [id number] [address] [place] [phone] Nov, [facility] [address] [id number] [address] [place] [address] [phone] Nov, Dental examination Z01.20 IMMUNIZATIONS No Known Immunizations SOCIAL HISTORY Never Assessed REASON FOR VISIT OB 1wk f/u-right mid back pain, thinks it may be from trying to sit up-Bo SANTORO PLAN OF CARE Activity Details Follow Up PRN Reason: VITAL SIGNS Height 65 in 2018-02-26 Weight 257.3 lbs 2018-02-26 Temperature 97.2 degrees Fahrenheit 2018-02-26 Heart Rate 86 bpm 2018-02-26 Respiratory Rate 20 2018-02-26 BMI 42.817 kg/m2 2018-02-26 Blood pressure systolic 122 mmHg 2018-02-26 Blood pressure diastolic 70 mmHg 2018-02-26 MEDICATIONS Medication Instructions Dosage Frequency Start Date End Date Duration S tatus Tramadol HCl 50 MG Orally every 6 hrs 1 tablet as needed 6h Not-Taking Vitamin 27-0.8 MG Orally Once a day 1 tablet 24h Active Ibuprofen Not-Taking RESULTS Name Result Date Reference Range UA OB DIP (IN HOUSE) 2018-02-26 Glucose neg Protein neg PROCEDURES Procedure Date Ordered Result Body Site URINE-NO MICRO February 26, 2018 INSTRUCTIONS MEDICATIONS ADMINISTERED No Known Medications MEDICAL (GENERAL) HISTORY Type Description Date Medical History Recovering alcoholic- sober since 2015 Medical History Depression Medical History Surgical History Hiatal Hernia Repair 2012 Hospitalization History Childbirth Hospitalization History Surgery
--- OUTSIDE RECORDS SUMMARY | 2019-11-02 01:13 | XMS REPORT ---
Author Author Roderick ESCAMILLA Organization [facility] Address [address] [place] [address] Care Team Providers Care Doughnut Maker Name Role Phone LINNETTE ESCAMILLA Unavailable PROBLEMS Unknown Problems ALLERGIES No Known Allergies ENCOUNTERS Encounter Location Date Diagnosis [place] 615951 N [place] [id number] [address] [place] [phone] Feb, BMI 40.0-44.9, adult Z68.41 and Third trimester Z33.1 [place] [address] N [place] [id number] [address] [place] [address] Feb, Third trimester Z3 4.93 [place] [address] N [place] [id number] [address] [place] [phone] Jan, Encounter for supervision of normal in third trimester Z34.93 [place] [address] N [place] [id number] [address] [place] [phone] Jan, BMI 40.0-44.9, adult Z68.41 and Normal in multigravida Z34.80 [place] [address]243 N [place] [id number] [address] [place] [phone] Jan, Encounter for supervision of normal in third trimester Z34.93 [place] 615951 [address] [place] [phone] December, Encounter for immunization Z 23 ; BMI 40.0-44.9, adult Z68.41 and care of multigravida, antepartum Z34.80 [place] [address] N [place] [id number] [address] [place] [phone] December, Encounter for supervision of normal in third trimester Z34.93 and Encounter for immunization Z23 [place] [address] [id number] [address] [place] [phone] December, Encounter for supervision of normal in third trimester Z34.93 [facility] [address] [id number] [address] [place] [phone] 18 Nov, 2017 Normal in multia yuliet Z34.80 [facility] [address] [id number] [address] [place] [address] [phone] Nov, Dental caries K02.9 [facility] [address] [id number] [address] [place] [phone] Nov, Normal in multigra yuliet Z34.80 [facility] [address] [id number] [address] [place] [phone] Nov, [facility] [address] [id number] [address] [place] [phone] Nov, Dental examination Z01.20 [facility] [address] [id number] [address] [place] [phone] Nov, [facility] [address] [id number] [address] [place] [phone] Nov, Encounter for test , result unknown Z32.00 [facility] [address] [id number] [address] [place] [phone] Nov, Dental examination Z01.20 IMMUNIZATIONS No Known Immunizations SOCIAL HISTORY Never Assessed REASON FOR VISIT OB 2wk f/u--tcuppettRN PLAN OF CARE Activity Details Follow Up 1 Week Reason: VITAL SIGNS Height 65 in 2018-01-29 Weight 251.0 lbs 2018-01-29 Temperature 98.2 degrees Fahrenheit 2018-01-29 Heart Rate 76 bpm 2018-01-29 Respiratory Rate 20 2018-01-29 BMI 41.769 kg/m2 2018-01-29 Blood pressure systolic 110 mmHg 2018-01-29 Blood pressure diastolic 62 mmHg 2018-01-29 MEDICATIONS Medication Instructions Dosage Frequency Start Date End Date Duration S tatus Tramadol HCl 50 MG Orally every 6 hrs 1 tablet as needed 6h Not-Taking Vitamin 27-0.8 MG Orally Once a day 1 tablet 24h Active Ibuprofen Not-Taking RESULTS Name Result Date Reference Range UA OB DIP (IN HOUSE) 2018-01-29 Glucose negative Protein 1+ PROCEDURES Procedure Date Ordered Result Body Site URINE-NO MICRO January 29, 2018 INSTRUCTIONS MEDICATIONS ADMINISTERED No Known Medications MEDICAL (GENERAL) HISTORY Type Description Date Medical History Recovering alcoholic- sober since 2015 Medical History Depression Medical History Surgical History Hiatal Hernia Repair 2012 Hospitalization History Childbirth Hospitalization History Surgery
--- OUTSIDE RECORDS SUMMARY | 2019-11-02 01:13 | XMS REPORT ---
Author Author Roderick ESCAMILLA Organization [facility] Address [address] [place] [address] Care Team Providers Care Manager Investment Name Role Phone LINNETTE ESCAMILLA Unavailable PROBLEMS Unknown Problems ALLERGIES No Known Allergies ENCOUNTERS Encounter Location Date Diagnosis [place] 084151 N [place] [id number] [address] [place] [phone] Feb, BMI 40.0-44.9, adult Z68.41 and Third trimester Z33.1 [place] [address] N [place] [id number] [address] [place] [address] Feb, Third trimester Z3 4.93 [place] [address] N [place] [id number] [address] [place] [address] Jan, Encounter for supervision of normal in third trimester Z34.93 [place] [address] N [place] [id number] [address] [place] [address] Jan, BMI 40.0-44.9, adult Z68.41 and Normal in multigravida Z34.80 [place] [address] N [place] [id number] [address] [place] [phone] Jan, Encounter for supervision of normal in third trimester Z34.93 [place] 084151 [address] [place] [address] December, Encounter for immunization Z 23 ; BMI 40.0-44.9, adult Z68.41 and care of multigravida, antepartum Z34.80 [place] [address] N [place] [id number] [address] [place] [phone] December, Encounter for supervision of normal in third trimester Z34.93 and Encounter for immunization Z23 [place] [address] [id number] [address] [place] [phone] December, Encounter for supervision of normal in third trimester Z34.93 [facility] [address] [id number] [address] [place] [phone] Nov, Normal in multigra yuliet Z34.80 [facility] [address] [id number] [address] [place] [address] [phone] Nov, Dental caries K02.9 [facility] [address] [id number] [address] [place] [phone] Nov, Normal in multigra yuliet Z34.80 [facility] [address] [id number] [address] [place] [phone] Nov, [facility] [address] [id number] [address] [place] [phone] Nov, Dental examination Z01.20 [facility] [address] [id number] [address] [place] [phone] Nov, [facility] [address] [id number] [address] [place] [phone] Nov, Encounter for test , result unknown Z32.00 [facility] [address] [id number] [address] [place] [address] [phone] Nov, Dental examination Z01.20 IMMUNIZATIONS No Known Immunizations SOCIAL HISTORY Never Assessed REASON FOR VISIT OB 1wk f/u, [facility] Activity Details Follow Up 1 Week Reason: VITAL SIGNS Height 65 in 2018-02-05 Weight 253.9 lbs 2018-02-05 Temperature 97.2 degrees Fahrenheit 2018-02-05 Heart Rate 90 bpm 2018-02-05 Respiratory Rate 20 2018-02-05 BMI 42.251 kg/m2 2018-02-05 Blood pressure systolic 130 mmHg 2018-02-05 Blood pressure diastolic 68 mmHg 2018-02-05 MEDICATIONS Medication Instructions Dosage Frequency Start Date End Date Duration S antonetteus Tramadol HCl 50 MG Orally every 6 hrs 1 tablet as needed 6h Not-Taking Vitamin 27-0.8 MG Orally Once a day 1 tablet 24h Not-Taking Ibuprofen Not-Taking RESULTS No Results PROCEDURES Procedure Date Ordered Result Body Site URINE-NO MICRO February 05, 2018 LAB NOT BILLED BY [facility] February 05, 2018 INSTRUCTIONS MEDICATIONS ADMINISTERED No Known Medications MEDICAL (GENERAL) HISTORY Type Description Date Medical History Recovering alcoholic- sober since 2015 Medical History Depression Medical History Surgical History Hiatal Hernia Repair 2012 Hospitalization History Childbirth Hospitalization History Surgery
--- OUTSIDE RECORDS SUMMARY | 2019-11-02 01:14 | XMS REPORT | Continuity of Care Document ---
Author Organization Unknown Address Unknown Phone Unavailable Allergies There is no data. Medications There is no data. Problems There is no data. Procedures There is no data. Results Test Result Range CULTURE, URINE - 11/20/17 17:48 CULTURE, URINE, ROUTINE SEE NOTE NRG RUBELLA IMMUNE STATUS - 12/18/17 16:50 RUBELLA ANTIBODY (IGG) <0.90 index NRG CULTURE, GROUP B STREP (VAGINAL) - 02/05 17:29 STREPTOCOCCUS, GROUP B CULTURE SEE NOTE NRG PDM - 09 PANEL (PROFILE 1) - 07/01/19 17 :09 Prescribed Drug 1 Tramadol NRG Creatinine 101.1 mg/dL > or = 20.0 pH 5.6 4.5-9.0 Oxidant NEGATIVE mcg/mL <200 Amphetamines NEGATIVE ng/mL <500 medMATCH Amphetamines CONSISTENT NRG Benzodiazepines NEGATIVE ng/mL <100 medMATCH Benzodiazepines CONSISTENT NRG Marijuana Metabolite NEGATIVE ng/mL <20 medMATCH Marijuana Metab CONSISTENT NRG Cocaine Metabolite NEGATIVE ng/mL <150 medMATCH Cocaine Metab CONSISTENT NRG Opiates NEGATIVE ng/mL <100 medMATCH Opiates CONSISTENT NRG Oxycodone NEGATIVE ng/mL <100 medMATCH Oxycodone CONSISTENT NRG COMMENT NRG Barbiturates NEGATIVE ng/mL <300 medMATCH Barbiturates CONSISTENT NRG Methadone Metabolite NEGATIVE ng/mL <100 medMATCH Methadone Metab CONSISTENT NRG Phencyclidine NEGATIVE ng/mL <25 medMATCH Phencyclidine CONSISTENT NRG Encounters ACCT No. Visit Date/Time Discharge Status Pt. Type Provider Facility Loc./Unit Complaint [id number] 10/26/2019 10:45:00 10/26/2019 23:59:5 9 CLS Outpatient SELF, SONAL Bernal [facility] [id number] 07/01/2019 17:00:00 Document Registration [id number] 02/05/2018 15:00:00 Document Registration [id number] 12/18/2017 15:15:00 Document Registration [id number] 11/20/2017 15:30:00 Document Registration
--- OUTSIDE RECORDS SUMMARY | 2019-11-02 01:14 | XMS REPORT ---
Author Author Roderick ESCAMILLA Organization [facility] Address [address] [place] [address] Care Team Providers Care Grounds Restoration Specialist Name Role Phone LINNETTE ESCAMILLA Unavailable PROBLEMS Unknown Problems ALLERGIES No Known Allergies ENCOUNTERS Encounter Location Date Diagnosis [place] [address] [address] [place] [id number] [address] [place] [address] Mar, [place] [address] [address] Feb, BMI 40.0-44.9, adult Z68.41 and Third trimester Z33.1 [place] [address] [address] Feb, Third trimester Z3 4.93 [place] [address] [place] [id number] [address] [place] [address] Jan, Encounter for supervision of normal in third trimester Z34.93 [place] [address] [place] [id number] [address] [place] [address] Jan, BMI 40.0-44.9, adult Z68.41 and Normal in multigravida Z34.80 [place] [address] [place] [id number] [address] [place] [address] Jan, Encounter for supervision of normal in third trimester Z34.93 [place] [address] [address] December, Encounter for immunization Z 23 ; BMI 40.0-44.9, adult Z68.41 and care of multigravida, antepartum Z34.80 [place] [address] [address] December, Encounter for supervision of normal in third trimester Z34.93 and Encounter for immunization Z23 [facility] [address] [id number] [address] [place] [address] December, Encounter for supervision of normal in third trimester Z34.93 [facility] [address] [id number] [address] [place] [address] Nov, Normal in multigra [place] Z34.80 [facility] [address] [id number] [address] [place] [phone] Nov, Dental caries K02.9 [facility] [address] [id number] [address] [place] [address] Nov, Normal in multia [place] Z34.80 [facility] [address] [id number] [address] [place] [address] Nov, [facility] [address] [id number] [address] [place] [address] Nov, Dental examination Z01.20 [facility] [address] [id number] [address] [place] [address] Nov, [facility] [address] [id number] [address] [place] [phone] Nov, Encounter for test , result unknown Z32.00 [facility] [address] [id number] [address] [place] [address] [phone] Nov, Dental examination Z01.20 IMMUNIZATIONS No Known Immunizations SOCIAL HISTORY Never Assessed REASON FOR VISIT OB 4wk [id number]/[id number] PLAN OF CARE Activity Details Follow Up 2 Weeks Reason: VITAL SIGNS Height 65 in 2017-12-04 Weight 243.4 lbs 2017-12-04 Temperature 98.1 degrees Fahrenheit 2017-12-04 Heart Rate 88 bpm 2017-12-04 Respiratory Rate 20 2017-12-04 BMI 40.504 kg/m2 2017-12-04 Blood pressure systolic 112 mmHg 2017-12-04 Blood pressure diastolic 68 mmHg 2017-12-04 MEDICATIONS Medication Instructions Dosage Frequency Start Date End Date Duration S dolly Tramadol HCl 50 MG Orally every 6 hrs 1 tablet as needed 6h Not-Taking Ibuprofen Not-Taking RESULTS Name Result Date Reference Range UA OB DIP (IN HOUSE) 2017-12-04 Glucose negative Protein negative PROCEDURES Procedure Date Ordered Result Body Site URINE-NO MICRO December 04, 2017 INSTRUCTIONS MEDICATIONS ADMINISTERED No Known Medications MEDICAL (GENERAL) HISTORY Type Description Date Medical History Recovering alcoholic- sober since 2015 Medical History Depression Medical History Surgical History Hiatal Hernia Repair 2013 Hospitalization History Childbirth Hospitalization History Surgery
--- OUTSIDE RECORDS SUMMARY | 2019-11-02 01:14 | XMS REPORT ---
Author Author Roderick ROTHMAN [facility] Address [address] [place] [address] Care Team Providers Care Dyehouse Worker Name Role Phone ESTHER ROTHMAN Unavailable PROBLEMS Unknown Problems ALLERGIES No Known Allergies ENCOUNTERS Encounter Location Date Diagnosis [place] [address] [place] [address] Feb, BMI 40.0-44.9, adult Z68.41 and Third trimester Z33.1 [place] [address] [address] [place] [id number] [address] [place] [address] Feb, Third trimester Z3 4.93 [place] [address] [place] [id number] [address] [place] [address] Jan, Encounter for supervision of normal in third trimester Z34.93 [place] [address] [place] [id number] [address] [place] [address] Jan, BMI 40.0-44.9, adult Z68.41 and Normal in multigravida Z34.80 [place] [address] [place] [id number] [address] [place] [address] Jan, Encounter for supervision of normal in third trimester Z34.93 [place] [address] [place] [id number] [address] [place] [address] December, Encounter for immunization Z 23 ; BMI 40.0-44.9, adult Z68.41 and care of multigravida, antepartum Z34.80 [place] [address] [place] [id number] [address] [place] [address] December, Encounter for supervision of normal in third trimester Z34.93 and Encounter for immunization Z23 [place] [address] [facility] [id number] [address] [place] [address] December, Encounter for supervision of normal in third trimester Z34.93 [facility] [address] [id number] [address] [place] [phone] 18 Nov, 2017 Normal in [facility] [place] Z34.80 [facility] [address] [id number] [address] [place] [address] [phone] Nov, Dental caries K02.9 [facility] [address] [id number] [address] [place] [phone] Nov, Normal in [facility] [place] Z34.80 [facility] [address] [id number] [address] [place] [address] Nov, [facility] [address] [id number] [address] [place] [phone] Nov, Dental examination Z01.20 [facility] [address] [id number] [address] [place] [phone] Nov, [facility] [address] [id number] [address] [place] [phone] Nov, Encounter for test , result unknown Z32.00 [facility] [address] [id number] [address] [place] [address] [phone] Nov, Dental examination Z01.20 IMMUNIZATIONS No Known Immunizations SOCIAL HISTORY Never Assessed REASON FOR VISIT OB Flowsheet PLAN OF CARE Activity Details Follow Up 2 Weeks Reason: VITAL SIGNS Weight 242.3 lbs 2017-11-20 Blood pressure systolic 112 mmHg 2017-11-20 Blood pressure diastolic 68 mmHg 2017-11-20 MEDICATIONS Medication Instructions Dosage Frequency Start Date End Date Duration S tatus Ibuprofen Not-Taking Tramadol HCl 50 MG Orally every 6 hrs 1 tablet as needed 6h Active RESULTS No Results PROCEDURES No Known procedures INSTRUCTIONS MEDICATIONS ADMINISTERED No Known Medications MEDICAL (GENERAL) HISTORY Type Description Date Medical History Recovering alcoholic- sober since 2015 Medical History Depression Medical History Surgical History Hiatal Hernia Repair 2012 Hospitalization History Childbirth Hospitalization History Surgery
--- OUTSIDE RECORDS SUMMARY | 2019-11-02 01:14 | XMS REPORT ---
Author Author Roderick MCDANIEL Organization [facility] Address Unknown Care Team Providers Care Pharmacy Consultant Name Role Phone HITESH MCDANIEL Unavailable PROBLEMS Unknown Problems ALLERGIES No Known Allergies ENCOUNTERS Encounter Location Date Diagnosis [place] [address] [place] [address] Feb, BMI 40.0-44.9, adult Z68.41 and Third trimester Z33.1 [place] [address] [address] [place] [id number] [address] [place] [address] Feb, Third trimester Z3 4.93 [place] [address] [place] [id number] [address] [place] [address] Jan, Encounter for supervision of normal in third trimester Z34.93 [place] [address] [place] [id number] [address] [place] [address] Jan, BMI 40.0-44.9, adult Z68.41 and Normal in multigravida Z34.80 [place] [address] [place] [id number] [address] [place] [address] Jan, Encounter for supervision of normal in third trimester Z34.93 [place] [address] [place] [id number] [address] [place] [address] December, Encounter for immunization Z 23 ; BMI 40.0-44.9, adult Z68.41 and care of multigravida, antepartum Z34.80 [place] [address] [place] [id number] [address] [place] [address] December, Encounter for supervision of normal in third trimester Z34.93 and Encounter for immunization Z23 [place] [address] [place] [id number] [address] [place] [address] December, Encounter for supervision of normal in third trimester Z34.93 [facility] [address] [id number] [address] [place] [phone] 18 Nov, 2017 Normal in [facility] [place] Z34.80 [facility] [address] [id number] [address] [place] [address] [phone] Nov, Dental caries K02.9 [facility] [address] [id number] [address] [place] [address] Nov, [facility] [place] Z34.80 [facility] [address] [id number] [address] [place] [address] Nov, [facility] [address] [id number] [address] [place] [phone] Nov, Dental examination Z01.20 [facility] [address] [id number] [address] [place] [phone] Nov, [facility] [address] [id number] [address] [place] [address] Nov, Encounter for test , result unknown Z32.00 [facility] [address] [id number] [address] [place] [address] [phone] Nov, Dental examination Z01.20 IMMUNIZATIONS No Known Immunizations SOCIAL HISTORY Never Assessed REASON FOR VISIT jose PLAN OF CARE Activity Details Follow Up prn Reason:TE after pt see O B/MEDICAL PHOTOGRAPHER VITAL SIGNS Blood pressure systolic 122 mmHg 2017-11-20 Blood pressure diastolic 78 mmHg 2017-11-20 MEDICATIONS Medication Instructions Dosage Frequency Start Date End Date Duration S tatus Ibuprofen Active RESULTS No Results PROCEDURES Procedure Date Ordered Result Body Site LTD ORAL EVALUATION - PROBLEM FOCUS November 20, 2017 INTRAORL-PERIAPICAL 1 FILM [id number] November 20, 2017 INTRAORL-PERIAPICAL EA ADD FILM November 20, 2017 INSTRUCTIONS MEDICATIONS ADMINISTERED No Known Medications MEDICAL (GENERAL) HISTORY Type Description Date Medical History Recovering alcoholic- sober since 2015 Medical History Depression Medical History Surgical History Hiatal Hernia Repair 2012 Hospitalization History Childbirth Hospitalization History Surgery
--- OUTSIDE RECORDS SUMMARY | 2019-11-02 01:14 | XMS REPORT ---
Author Author Roderick ROTHMAN [facility] Address [address] [place] [address] Care Team Providers Care Hired Help Name Role Phone ESTHER ROTHMAN Unavailable PROBLEMS Unknown Problems ALLERGIES No Information ENCOUNTERS Encounter Location Date Diagnosis [place] [address] [place] [id number] [address] [place] [address] Feb, BMI 40.0-44.9, adult Z68.41 and Third trimester Z33.1 [place] [address] [address] [place] [id number] [address] [place] [address] Feb, Third trimester Z3 4.93 [place] [address] [address] [place] [id number] [address] [place] [address] Jan, Encounter for supervision of normal in third trimester Z34.93 [place] [address] [address] [place] [id number] [address] [place] [address] Jan, BMI 40.0-44.9, adult Z68.41 and Normal in multigravida Z34.80 [place] [address] [address] [place] [id number] [address] [place] [address] Jan, Encounter for supervision of normal in third trimester Z34.93 [place] [address] [address] [place] [id number] [address] [place] [phone] December, Encounter for immunization Z 23 ; BMI 40.0-44.9, adult Z68.41 and care of multigravida, antepartum Z34.80 [place] [address] [address] [place] [id number] [address] [place] [address] December, Encounter for supervision of normal in third trimester Z34.93 and Encounter for immunization Z23 [place] [address] [address] [place] [id number] [address] [place] [address] December, Encounter for supervision of normal in third trimester Z34.93 [facility] [address] [id number] [address] [place] [phone] 18 Nov, 2017 Normal in [place] Z34.[address] [facility] [address] [id number] [address] [place] [address] [phone] Nov, Dental caries K02.9 [facility] [address] [id number] [address] [place] [address] Nov, Normal in multigra [place] Z34.80 [facility] [address] [id number] [address] [place] [phone] Nov, [facility] [address] [id number] [address] [place] [address] Nov, Dental examination Z01.20 [facility] [address] [id number] [address] [place] [phone] Nov, [facility] [address] [id number] [address] [place] [phone] Nov, Encounter for test , result unknown Z32.00 [facility] [address] [id number] [address] [place] [address] [phone] Nov, Dental examination Z01.20 IMMUNIZATIONS No Known Immunizations SOCIAL HISTORY Never Assessed REASON FOR VISIT test (walk-in) PLAN OF CARE VITAL SIGNS MEDICATIONS Unknown Medications RESULTS Name Result Date Reference Range TEST, URINE (IN HOUSE) 2017-11-20 RESULTS Positive Lot # [id number] Control + Exp date 02/2019 PROCEDURES Procedure Date Ordered Result Body Site URINE TEST November 20, 2017 INSTRUCTIONS MEDICATIONS ADMINISTERED No Known Medications MEDICAL (GENERAL) HISTORY Type Description Date Medical History Recovering alcoholic- sober since 2015 Medical History Depression Medical History Surgical History Hiatal Hernia Repair 2012 Hospitalization History Childbirth Hospitalization History Surgery
--- OUTSIDE RECORDS SUMMARY | 2019-11-02 01:14 | XMS REPORT ---
Author Author Roderick ESCAMILLA Organization [facility] Address [address] [place] [address] Care Team Providers Care Machine Veneer Repairer Name Role Phone LINNETTE ESCAMILLA Unavailable PROBLEMS Unknown Problems ALLERGIES No Information ENCOUNTERS Encounter Location Date Diagnosis [place] [address] [place] [id number] [address] [place] [phone] Feb, BMI 40.0-44.9, adult Z68.41 and Third trimester Z33.1 [place] [address] [address] [place] [id number] [address] [place] [address] Feb, Third trimester Z3 4.93 [place] [address] [address] [place] [id number] [address] [place] [address] Jan, Encounter for supervision of normal in third trimester Z34.93 [place] [address] [address] [place] [id number] [address] [place] [address] Jan, BMI 40.0-44.9, adult Z68.41 and Normal in multigravida Z34.80 [place] [address] [address] [place] [id number] [address] [place] [phone] Jan, Encounter for supervision of normal in third trimester Z34.93 [place] [address] [address] [place] [id number] [address] [place] [address] December, Encounter for immunization Z 23 ; BMI 40.0-44.9, adult Z68.41 and care of multigravida, antepartum Z34.80 [place] [address] [address] [place] [id number] [address] [place] [phone] December, Encounter for supervision of normal in third trimester Z34.93 and Encounter for immunization Z23 [place] [address] [id number] [address] [place] [phone] December, Encounter for supervision of normal in third trimester Z34.93 [facility] [address] [id number] [address] [place] [phone] Nov, Normal in mult[place] Z34.80 [facility] [address] [id number] [address] [place] [address] [phone] Nov, Dental caries K02.9 [facility] [address] [id number] [address] [place] [phone] Nov, Normal in multigra [place] Z34.80 [facility] [address] [id number] [address] [place] [phone] Nov, [facility] [address] [id number] [address] [place] [phone] Nov, Dental examination Z01.20 [facility] [address] [id number] [address] [place] [phone] Nov, Encounter for test , result unknown Z32.00 [facility] [address] [id number] [address] [place] [phone] Nov, [facility] [address] [id number] [address] [place] [address] [phone] Nov, Dental examination Z01.20 IMMUNIZATIONS No Known Immunizations SOCIAL HISTORY Never Assessed REASON FOR VISIT Presumptive Eligibility-APPROVED PLAN OF CARE VITAL SIGNS MEDICATIONS Unknown Medications RESULTS No Results PROCEDURES No Known procedures INSTRUCTIONS MEDICATIONS ADMINISTERED No Known Medications MEDICAL (GENERAL) HISTORY Type Description Date Medical History Recovering alcoholic- sober since 2015 Medical History Depression Medical History Surgical History Hiatal Hernia Repair 2012 Hospitalization History Childbirth Hospitalization History Surgery
--- OUTSIDE RECORDS SUMMARY | 2019-11-02 01:14 | XMS REPORT ---
Author Author Roderick OSULLIVAN [facility] Address [address] [place] [address] Care Team Providers Care Magneto Repairer Name Role Phone TIMO OSULLIVAN Unavailable PROBLEMS Unknown Problems ALLERGIES No Information ENCOUNTERS Encounter Location Date Diagnosis [place] [address] [address] [place] [phone] Feb, BMI 40.0-44.9, adult Z68.41 and Third trimester Z33.1 [place] [address] [address] [place] [id number] [address] [place] [phone] Feb, Third trimester Z3 4.93 [place] [address] [address] [place] [id number] [address] [place] [phone] Jan, Encounter for supervision of normal in third trimester Z34.93 [place] [address] [address] [place] [id number] [address] [place] [phone] Jan, BMI 40.0-44.9, adult Z68.41 and Normal in multigravida Z34.80 [place] [address] [address] [place] [id number] [address] [place] [phone] Jan, Encounter for supervision of normal in third trimester Z34.93 [place] [address] [place] [id number] [address] [place] [phone] December, Encounter for immunization Z 23 ; BMI 40.0-44.9, adult Z68.41 and care of multigravida, antepartum Z34.80 [place] [address] [address] [place] [id number] [address] [place] [phone] December, Encounter for supervision of normal in third trimester Z34.93 and Encounter for immunization Z23 [facility] [address] [id number] [address] [place] [phone] December, Encounter for supervision of normal in third trimester Z34.93 [facility] [address] [id number] [address] [place] [phone] Nov, Normal in multigra [place] Z34.80 [facility] [address] [id number] [address] [place] [address] [phone] Nov, Dental caries K02.9 [facility] [address] [id number] [address] [place] [phone] Nov, Normal in multig[place] Z34.80 [facility] [address] [id number] [address] [place] [phone] Nov, [facility] [address] [id number] [address] [place] [phone] Nov, Dental examination Z01.20 [facility] [address] [id number] [address] [place] [phone] Nov, [facility] [address] [id number] [address] [place] [phone] Nov, Encounter for test , result unknown Z32.00 [facility] [address] [id number] [address] [place] [address] [phone] Nov, Dental examination Z01.20 IMMUNIZATIONS No Known Immunizations SOCIAL HISTORY Never Assessed REASON FOR VISIT Integrated [facility] PLAN OF CARE Activity Details Follow Up jr Reason:TE root tips 18 & 19 VITAL SIGNS MEDICATIONS Unknown Medications RESULTS No Results PROCEDURES Procedure Date Ordered Result Body Site SCREENING OF A PATIENT November 20, 2017 Billing Notes on claim November 20, 2017 INSTRUCTIONS MEDICATIONS ADMINISTERED No Known Medications MEDICAL (GENERAL) HISTORY Type Description Date Medical History Recovering alcoholic- sober since 2016 Medical History Depression Medical History Surgical History Hiatal Hernia Repair 2012 Hospitalization History Childbirth Hospitalization History Surgery
--- OUTSIDE RECORDS SUMMARY | 2019-11-02 01:14 | XMS REPORT ---
Author Author Roderick ESCAMILLA Organization [facility] Address [address] [place] [address] Care Team Providers Care Hospital Librarian Name Role Phone LINNETTE ESCAMILLA Unavailable PROBLEMS Unknown Problems ALLERGIES No Known Allergies ENCOUNTERS Encounter Location Date Diagnosis [place] [address] [address] [place] [id number] [address] [place] [phone] Mar, [place] [address] [address] Feb, BMI 40.0-44.9, adult Z68.41 and Third trimester Z33.1 [place] [address] [address] Feb, Third trimester Z3 4.93 [place] [address] [place] [id number] [address] [place] [address] Jan, Encounter for supervision of normal in third trimester Z34.93 [place] [address] [place] [id number] [address] [place] [address] Jan, BMI 40.0-44.9, adult Z68.41 and Normal in multigravida Z34.80 [place] [address] [place] [id number] [address] [place] [phone] Jan, Encounter for supervision of normal in third trimester Z34.93 [place] [address] [address] December, Encounter for immunization Z 23 ; BMI 40.0-44.9, adult Z68.41 and care of multigravida, antepartum Z34.80 [place] [address] [address] December, Encounter for supervision of normal in third trimester Z34.93 and Encounter for immunization Z23 [facility] [address] [id number] [address] [place] [phone] December, Encounter for supervision of normal in third trimester Z34.93 [facility] [address] [id number] [address] [place] [phone] Nov, Normal in multigra [place] Z34.80 [facility] [address] [id number] [address] [place] [phone] Nov, Dental caries K02.9 [facility] [address] [id number] [address] [place] [phone] Nov, Normal in multigra [place] Z34.80 [facility] [address] [id number] [address] [place] [phone] Nov, [facility] [address] [id number] [address] [place] [phone] Nov, Dental examination Z01.20 [facility] [address] [id number] [address] [place] [phone] Nov, [facility] [address] [id number] [address] [place] [phone] Nov, Encounter for test , result unknown Z32.00 [facility] [address] [id number] [address] [place] [phone] Nov, Dental examination Z01.20 IMMUNIZATIONS No Known Immunizations SOCIAL HISTORY Never Assessed REASON FOR VISIT OB 4wk f/u--[facility] PLAN OF CARE Activity Details Follow Up 2 Weeks Reason: Pending Test SYPHILIS (STATE) VITAL SIGNS Height 65 in 2017-12-18 Weight 246.6 lbs 2017-12-18 Temperature 98.4 degrees Fahrenheit 2017-12-18 Heart Rate 80 bpm 2017-12-18 Respiratory Rate 20 2017-12-18 BMI 41.036 kg/m2 2017-12-18 Blood pressure systolic 114 mmHg 2017-12-18 Blood pressure diastolic 62 mmHg 2017-12-18 MEDICATIONS Medication Instructions Dosage Frequency Start Date End Date Duration S dolly Tramadol HCl 50 MG Orally every 6 hrs 1 tablet as needed 6h Not-Taking Ibuprofen Not-Taking RESULTS No Results PROCEDURES Procedure Date Ordered Result Body Site No Charge December 18, 2017 VENIPUNCT, ROUTINE* December 18, 2017 URINE-NO MICRO December 18, 2017 LAB NOT BILLED BY [facility] December 18, 2017 Bacterial Vaginosis In House December 18, 2017 SPECIMEN HANDLING December 18, 2017 INSTRUCTIONS MEDICATIONS ADMINISTERED No Known Medications MEDICAL (GENERAL) HISTORY Type Description Date Medical History Recovering alcoholic- sober since 2016 Medical History Depression Medical History Surgical History Hiatal Hernia Repair 2012 Hospitalization History Childbirth Hospitalization History Surgery
--- OUTSIDE RECORDS SUMMARY | 2019-11-02 01:14 | XMS REPORT ---
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 Name Role Phone LINNETTE ESCAMILLA Unavailable PROBLEMS Unknown Problems ALLERGIES No Known Allergies ENCOUNTERS Encounter Location Date Diagnosis [place] [place] [id number] [address] [place] [phone] Feb, BMI 40.0-44.9, adult Z68.41 and Third trimester Z33.1 [place] [address] [address] [place] [id number] [address] [place] [address] Feb, Third trimester Z3 4.93 [place] [address] [place] [id number] [address] [place] [phone] Jan, Encounter for supervision of normal in third trimester Z34.93 [place] [address] [place] [id number] [address] [place] [phone] Jan, BMI 40.0-44.9, adult Z68.41 and Normal in multigravida Z34.80 [place] [address] [address] [place] [id number] [address] [place] [phone] Jan, Encounter for supervision of normal in third trimester Z34.93 [place] [address] [place] [phone] December, Encounter for immunization Z 23 ; BMI 40.0-44.9, adult Z68.41 and care of multigravida, antepartum Z34.80 [place] [address] [address] [place] [id number] [address] [place] [phone] December, Encounter for supervision of normal in third trimester Z34.93 and Encounter for immunization Z23 [place] [address] [id number] [address] [place] [phone] December, Encounter for supervision of normal in third trimester Z34.93 [facility] [address] [id number] [address] [place] [phone] 18 Nov, 2017 Normal in [facility] [place] Z34.80 [facility] [address] [id number] [address] [place] [phone] Nov, 2017 Dental caries K02.9 [facility] [address] [id number] [address] [place] [phone] Nov, Normal in [place] Z34.80 [facility] [address] [id number] [address] [place] [phone] 04 Nov, 2017 [facility] [address] [id number] [address] [place] [phone] Nov, Dental examination Z01.20 [facility] [address] [id number] [address] [place] [phone] Nov, [facility] [address] [id number] [address] [place] [phone] 04 Nov, 2017 Encounter for test , result unknown Z32.00 [facility] [address] [id number] [address] [place] [address] [phone] 04 Nov, 2017 Dental examination Z01.20 IMMUNIZATIONS No Known Immunizations SOCIAL HISTORY Never Assessed REASON FOR VISIT NU-wguhli-UqrnxjxbxiuDM PLAN OF CARE Activity Details Follow Up 2 Weeks Reason: VITAL SIGNS Height 65 in 2017-11-20 Weight 242.3 lbs 2017-11-20 Temperature 97.8 degrees Fahrenheit 2017-11-20 Heart Rate 80 bpm 2017-11-20 Respiratory Rate 20 2017-11-20 BMI 40.32 kg/m2 2017-11-20 Blood pressure systolic 112 mmHg 2017-11-20 Blood pressure diastolic 68 mmHg 2017-11-20 MEDICATIONS Medication Instructions Dosage Frequency Start Date End Date Duration S tatus Tramadol HCl 50 MG Orally every 6 hrs 1 tablet as needed 6h Active Ibuprofen Active RESULTS No Results PROCEDURES Procedure Date Ordered Result Body Site URINALYSIS, AUTO, W/O SCOPE November 20, 2017 No Charge November 20, 2017 RBC ANTIBODY SCREEN November 20, 2017 RUBELLA ANTIBODY November 20, 2017 URINE CULTURE/COLONY COUNT November 20, 2017 BLOOD TYPING, ABO November 20, 2017 BLOOD TYPING, RH (D) November 20, 2017 ASSAY THYROID STIM HORMONE November 20, 2017 COMPLETE CBC W/AUTO DIFF WBC November 20, 2017 INSTRUCTIONS MEDICATIONS ADMINISTERED No Known Medications MEDICAL (GENERAL) HISTORY Type Description Date Medical History Recovering alcoholic- sober since 2015 Medical History Depression Medical History Surgical History Hiatal Hernia Repair 2012 Hospitalization History Childbirth Hospitalization History Surgery
--- OUTSIDE RECORDS SUMMARY | 2019-11-02 01:14 | XMS REPORT ---
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 Name Role Phone HITESH MCDANIEL Unavailable PROBLEMS Unknown Problems ALLERGIES No Known Allergies ENCOUNTERS Encounter Location Date Diagnosis [place] [address] [place] [phone] Feb, BMI 40.0-44.9, adult Z68.41 and Third trimester Z33.1 [place] [address] [address] [place] [id number] [address] [place] [phone] Feb, Third trimester Z3 4.93 [place] [address] [address] [place] [id number] [address] [place] [phone] Jan, Encounter for supervision of normal in third trimester Z34.93 [place] [address] [address] [place] [id number] [address] [place] [phone] Jan, BMI 40.0-44.9, adult Z68.41 and Normal in multigravida Z34.80 [place] [address] [address] [place] [id number] [address] [place] [phone] Jan, Encounter for supervision of normal in third trimester Z34.93 [place] [address] [place] [id number] [address] [place] [phone] December, Encounter for immunization Z 23 ; BMI 40.0-44.9, adult Z68.41 and care of multigravida, antepartum Z34.80 [place] [address] [address] [place] [id number] [address] [place] [phone] December, Encounter for supervision of normal in third trimester Z34.93 and Encounter for immunization Z23 [place] [address] [address] [place] [id number] [address] [place] [phone] December, Encounter for supervision of normal in third trimester Z34.93 [facility] [address] [id number] [address] [place] [phone] 18 Nov, 2017 [facility] Z34.80 [facility] [address] [id number] [address] [place] [phone] Nov, Dental caries K02.9 [facility] [address] [id number] [address] [place] [phone] Nov, Normal in [facility] [place] Z34.80 [facility] [address] [id number] [address] [place] [phone] Nov, [facility] [address] [id number] [address] [place] [phone] Nov, Dental examination Z01.20 [facility] [address] [id number] [address] [place] [phone] Nov, [facility] [address] [id number] [address] [place] [phone] Nov, Encounter for test , result unknown Z32.00 [facility] [address] [id number] [address] [place] [address] [phone] Nov, Dental examination Z01.20 IMMUNIZATIONS No Known Immunizations SOCIAL HISTORY Never Assessed REASON FOR VISIT TE PLAN OF CARE Activity Details Follow Up prn Reason:HERSON with HYG VITAL SIGNS Blood pressure systolic 112 mmHg 2017-11-20 Blood pressure diastolic 68 mmHg 2017-11-20 MEDICATIONS Medication Instructions Dosage Frequency Start Date End Date Duration S tatus Ibuprofen Active Tramadol HCl 50 MG Orally every 6 hrs 1 tablet as needed 6h Active RESULTS No Results PROCEDURES Procedure Date Ordered Result Body Site EXTRAC ERUPTED TOOTH/EXPOSED ROOT November 20, 2017 EXTRAC ERUPTED TOOTH/EXPOSED ROOT November 20, 2017 INSTRUCTIONS MEDICATIONS ADMINISTERED No Known Medications MEDICAL (GENERAL) HISTORY Type Description Date Medical History Recovering alcoholic- sober since 2015 Medical History Depression Medical History Surgical History Hiatal Hernia Repair 2012 Hospitalization History Childbirth Hospitalization History Surgery
--- OUTSIDE RECORDS SUMMARY | 2019-11-02 01:14 | XMS REPORT ---
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 Name Role Phone LINNETTE ESCAMILLA Unavailable PROBLEMS Unknown Problems ALLERGIES No Known Allergies ENCOUNTERS Encounter Location Date Diagnosis [place] [id number] [place] [id number] [address] [place] [phone] Feb, BMI 40.0-44.9, adult Z68.41 and Third trimester Z33.1 [place] [address] [address] [place] [id number] [address] [place] [address] Feb, Third trimester Z3 4.93 [place] [address] [address] [place] [id number] [address] [place] [address] Jan, Encounter for supervision of normal in third trimester Z34.93 [place] [address] [address] [place] [id number] [address] [place] [phone] Jan, BMI 40.0-44.9, adult Z68.41 and Normal in multigravida Z34.80 [place] [address] [address] [place] [id number] [address] [place] [phone] Jan, Encounter for supervision of normal in third trimester Z34.93 [place] [address] [place] [address] December, Encounter for immunization Z 23 ; BMI 40.0-44.9, adult Z68.41 and care of multigravida, antepartum Z34.80 [place] [address] [place] [id number] [address] [place] [phone] December, Encounter for supervision of normal in third trimester Z34.93 and Encounter for immunization Z23 [place] [address] [id number] [address] [place] [phone] December, Encounter for supervision of normal in third trimester Z34.93 [facility] [address] [id number] [address] [place] [phone] Nov, Normal in [facility] [place] Z34.80 [facility] [address] [id number] [address] [place] [phone] Nov, Dental caries K02.9 [facility] [address] [id number] [address] [place] [phone] Nov, Normal in [facility] [place] Z34.80 [facility] [address] [id number] [address] [place] [phone] Nov, [facility] [address] [id number] [address] [place] [phone] Nov, Dental examination Z01.20 [facility] [address] [id number] [address] [place] [phone] Nov, [facility] [address] [id number] [address] [place] [phone] Nov, Encounter for test , result unknown Z32.00 [facility] [address] [id number] [address] [place] [address] [phone] Nov, Dental examination Z01.20 IMMUNIZATIONS No Known Immunizations SOCIAL HISTORY Never Assessed REASON FOR VISIT OB 2wk f/u-AHarrymanRN, Pt states notices tightening in lower back PLAN OF CARE Activity Details Follow Up 2 Weeks Reason: VITAL SIGNS Height 65 in 2018-01-15 Weight 251.0 lbs 2018-01-15 Temperature 98.0 degrees Fahrenheit 2018-01-15 Heart Rate 88 bpm 2018-01-15 Respiratory Rate 20 2018-01-15 BMI 41.769 kg/m2 2018-01-15 Blood pressure systolic 116 mmHg 2018-01-15 Blood pressure diastolic 68 mmHg 2018-01-15 MEDICATIONS Medication Instructions Dosage Frequency Start Date End Date Duration S tatus Ibuprofen Not-Taking Vitamin 27-0.8 MG Orally Once a day 1 tablet 24h Active Tramadol HCl 50 MG Orally every 6 hrs 1 tablet as needed 6h Not-Taking RESULTS No Results PROCEDURES No Known procedures INSTRUCTIONS MEDICATIONS ADMINISTERED No Known Medications MEDICAL (GENERAL) HISTORY Type Description Date Medical History Recovering alcoholic- sober since 2015 Medical History Depression Medical History Surgical History Hiatal Hernia Repair 2012 Hospitalization History Childbirth Hospitalization History Surgery
== END 2019-11-01 14:40 | disposition home or self-care (01) ==
LOC: EDUNIT# 12:49 → ER FS 12:51
DX: N83.202 Unspecified ovarian cyst, left side (principal)
CPT/HCPCS: 36415; 74019; 74177; 80053; 81000; 82150; 83690; 84703; 85025

== ENCOUNTER 2020-05-28 09:37 | Emergency (ER) | payer SELFPAY ==
[~2020-05-28] VITALS: Ht 167.7 cm; Wt 106.9 kg
[~2020-05-28 09:37] MED LIST changes: +DICL75TA2 PO; +DICY20TA10 PO
[2020-05-28] MEDS ORDERED: ACETAMINOPHEN 500 MG TAB (TYLENOL) PO ONE (10:15)
[2020-05-28] MEDS ORDERED: IBUPROFEN 800 MG (MOTRIN) TAB PO ONE (10:15)
--- NOTE | 2020-05-28 10:16 | ED General ---
General Chief Complaint: Fever-Adult/Adol Stated Complaint: FEVER, HEADACHE, SOA, CHEST PAIN Nursing Triage Note: Patient arrival to ED reporting has had cough since 05/26 and sinus drainage with "raw" throat. Pt tested on 05/26 at work and COVID test neg. Saw [facility] yesterday and told she has allergies, buy nasal spray. Pt developed fever last night spiking to 103.6. Has been around ppl with "rhinovirus". Nursing Sepsis Screen: Possible Severe Sepsis Risk History of Present Illness Date Seen by Provider: May 28, 2020 Time Seen by Provider: 10:12 Initial Comments Patient presents emergency department for evaluation of multiple symptoms including cough congestion and sinus headache arthralgias myalgias fevers chills and generally not feeling well for the past 2 days. She says she had a negative COVID test randomly through her work 4 days ago and then 2 days ago started developing symptoms as above including sore throat and went to an urgent care and was tested for strep and she was having a sore throat and it came back negative. Patient says that her fevers have been up to 103 at home and given her cough was productive of greenish sputum she wanted to get checked in the emergency department. Allergies and Home Medications Allergies Coded Allergies: No Known Drug Allergies (Unverified , 03/03/18) Home Medications Albuterol Sulfate 1 Puff Puff, 2 PUFF IH Q4H 1 PUFF = 90 MCG Prescribed by: TRISTAN OG on 05/28/20 1059 Diclofenac Sodium 75 Mg Tablet.dr, 75 MG PO BID Prescribed by: OPAL MICHELE on 11/01/19 1435 Dicyclomine HCl 20 Mg Tablet, 20 MG PO BID WITH MEALS Prescribed by: OPAL MICHELE on 11/01/19 1435 Hydrocodone Bit/Acetaminophen 1 Tab Tab, 1 TAB PO Q4H PRN for PAIN-MODERATE Prescribed by: LINNETTE ESCAMILLA on 03/04/18 0740 Hydrocodone/Chlorphen P-Stirex 473 [address] Sari.er.12h, 5 ML PO BID Prescribed by: TRISTAN OG on 05/28/20 1059 Ibuprofen 600 Mg Tablet, 600 MG PO Q6H Prescribed by: LINNETTE ESCAMILLA on 03/04/18 0740 Vit W-Ca,Fe,FA(<1 mg) 1 Each Tablet, 1 EACH PO DAILY, (Reported) Patient Home Medication List Home Medication List Reviewed: Yes Review of Systems Review of Systems Constitutional: chills, fever, malaise EENTM: hoarseness, nose congestion, throat pain Respiratory: cough Cardiovascular: no symptoms reported Gastrointestinal: no symptoms reported Musculoskeletal: joint pain, muscle pain Psychiatric/Neurological: No Symptoms Reported All Other Systems Reviewed Negative Unless Noted: Yes Past Zkidkfb-Yuxkpv-Feeerk Hx Patient Social History Alcohol Use: Denies Use Recreational Drug Use: No Smoking Status: Never a Smoker 2nd Hand Smoke Exposure: No Recent Foreign Travel: No Contact w/Someone Who Travel: No Recent Infectious Disease Expo: No Recent Hopitalizations: No Physical Abuse: No Sexual Abuse: No Mistreated: No Fear: No Seasonal Allergies Seasonal Allergies: No Past Medical History Surgeries: Yes (Hiatal Hernia repair) Respiratory: No Cardiac: No Neurological: No : No Genitourinary: No Gastrointestinal: Yes (surgery [id number]) Hiatal Hernia Musculoskeletal: Yes Chronic Back Pain Endocrine: No HEENT: No Cancer: No Psychosocial: Yes Anxiety Integumentary: No Blood Disorders: No Adverse Reaction/Blood Tranf: No Family Medical History Patient reports no known family medical history. Physical Exam Vital Signs Vital Signs - First Documented 05/28/20 09:45 Temp 38.1 Pulse 116 Resp 16 B/P (MAP) 112/66 (81) Pulse Ox 97 O2 Delivery Room Air Capillary Refill : Less Than 3 Seconds Height, Weight, BMI Height: 5'6.00" Weight: 256lbs. 2.0oz. 116.582655ze; 38.00 BMI Method: General Appearance: No Apparent Distress, WD/WN HEENT: PERRL/EOMI, Pharynx Normal Neck: Supple Respiratory: Lungs Clear, No Respiratory Distress Cardiovascular: No Edema, Tachycardia Gastrointestinal: Non Tender, Soft Back: Normal Inspection Extremity: No Pedal Edema Neurologic/Psychiatric: Alert, Oriented x3 Skin: Warm/Dry Progress/Results/Core Measures Suspected Sepsis Recent Fever Within 48 Hours: Yes Infection Criteria Present: Suspected New Infection New/Unexplained Altered Menta: No Sepsis Screen: Possible Severe Sepsis Risk SIRS Temperature: Pulse: 116 Respiratory Rate: 16 Blood Pressure 112 /66 Mean: 81 Results/Orders Micro Results Microbiology 05/28/20 Influenza Types A,B Antigen (ROBERTO) - Final, Complete My Orders Orders - TRISTAN OG DO Influenza A And B Antigens (05/28/20 10:10) Chest 1 View Ap/Pa Only (05/28/20 10:10) Acetaminophen Tablet (Tylenol Tablet) (05/28/20 10:15) Ibuprofen Tablet (Motrin Tablet) (05/28/20 10:15) Medications Given in ED Current Medications Medications Dose Ordered Sig/Valerie Route Start Time Stop Time Status Last Admin Dose Admin Acetaminophen 1,000 mg ONCE ONCE PO 05/28/20 10:15 05/28/20 10:16 DC 05/28/20 10:36 1,000 MG Ibuprofen 800 mg ONCE ONCE PO 05/28/20 10:15 05/28/20 10:16 DC 05/28/20 10:36 800 MG Vital Signs/I&O 05/28/20 05/28/20 05/28/20 09:45 10:36 10:36 Temp 38.1 38.1 38.1 Pulse 116 Resp 16 B/P (MAP) 112/66 (81) Pulse Ox 97 O2 Delivery Room Air Capillary Refill : Less Than 3 Seconds Blood Pressure Mean: 81 Progress Note : Progress Note Patient's x-rays negative and her flu swab was negative as well. I told her that I suspect this is a viral upper respiratory infection likely either from COVID-19 or from the rhinovirus that she was exposed to at work. I told her there is no specific treatment is needed this time but using supportive medications including ibuprofen Tylenol Benadryl and nasal sprays may help and I can prescribe her tussionex and asked for her cough. She has normal vital signs and has no dyspnea and normal oxygen saturation at 97%. She looks quite well except for having a intermittent cough. I told her that she get tested for COVID-19 at her work and that she should come back to emergency department if she is having worsening pain shortness of breath hypoxia or other general concerns. Patient aware and agreeable with plan and verbalized understanding of the above instructions. Departure Impression Primary Impression: Upper respiratory infection Qualified Codes: J06.9 - Acute upper respiratory infection, unspecified Additional Impression: Fever Disposition: 01 HOME, SELF-CARE Condition: Stable Departure-Patient Inst. Referrals: SELF,SONAL BREWSTER (PCP/Family) Primary Care Physician Patient Instructions: Urinary Tract Infection, Adult (DC) Add. Discharge Instructions: Take 600mg of Ibuprofen every 6 hours and alternate with 650mg of tylenol every 6 hours. Take 50mg of benadryl twice a day for the sinus pressure. Drink plenty of fluids. Follow with primary care provider next week. Come back with soa or other concerns. Thank you! All discharge instructions reviewed with patient and/or family. Voiced understanding. Scripts Hydrocodone/Chlorphen P-Stirex (Hydrocodone-Chlorphen ER Susp) 473 Ml Sari.er.12h 5 ML PO BID for 7 Days, #70 ML Prov: TRISTAN OG DO 05/28/20 Albuterol Sulfate (PROAIR HFA) 1 Puff Puff 2 PUFF IH Q4H, #1 INH 1 PUFF = 90 MCG Prov: TRISTAN OG DO 05/28/20 TRISTAN OG DO May 28, 2020 10:16
--- NOTE | 2020-05-28 10:29 | Diagnostic Imaging Report ---
EXAMINATION: Chest 1 view HISTORY: COUGH, FEVER COMPARISON: None available. FINDINGS: Heart size and pulmonary vasculature are normal. The lungs are clear without consolidation, pleural effusion, or pneumothorax. The osseous structures are intact. IMPRESSION: 1. No acute radiographic abnormality in the chest. Dictated by: Dictated on workstation # [id number]
[2020-05-28] MEDS ORDERED: RT-ALBUINH IH (10:59)
[2020-05-28] MEDS ORDERED: HYDR473S61 PO (10:59)
[2020-05-28 11:15] VITALS: BP 103/85
== END 2020-05-28 11:15 | disposition home or self-care (01) ==
LOC: EDUNIT# 09:37 → ER FS 09:40
DX: J06.9 Acute upper respiratory infection, unspecified (principal); G89.29 Other chronic pain; M54.9 Dorsalgia, unspecified; Z79.891 Long term (current) use of opiate analgesic
CPT/HCPCS: 71045; 87804